=== PATIENT | male | born 1935 | race Caucasian/White ===

== ENCOUNTER 2018-03-11 10:31 | Inpatient (IN) | payer OTHER ==
--- NOTE | 2018-03-11 11:00 | PDOC ---
History of Present Illness - General History Source: Patient, Old Records Exam Limitations: No Limitations - History of Present Illness Initial Comments: 03/11/18 11:06 The patient is a 82 year old male, with a significant past medical history of hypertension, prostate cancer(s/p resection), and arthritis who presents to the emergency department sent by PCP Dr. Rangel Gilman, for evaluation of hyponatremia. Patient endorses several weeks of generalized fatigue, weakness, and lightheadedness. However, he denies any chest pain, shortness of breath, diaphoresis, or palpitations. She denies any abdominal pain, nausea, vomiting, diarrhea, or constipation. He denies any fever, chills, cough, headache, or dizziness. Patient reports he was being worked up by Dr. Gilman, where his last blood work was notable for a sodium of 124 4 days ago. He denies any recent travel or sick contacts. Allergies: Naproxen Past Surgical History: Prostate resection, hernia repair Social History: Former smoker. No ETOH or recreational drug use. PCP: Dr. Rangel Gilman <Darien Lee - Last Filed: 03/11/18 12:38> - General History Source: Patient, Old Records Exam Limitations: No Limitations <AnithaDuncan - Last Filed: 03/11/18 12:46> - General Chief Complaint: Revisit, Lab Variance Stated Complaint: SENT BY PCP LOW NA Time Seen by Provider: 03/11/18 10:42 Past History <Darien Lee - Last Filed: 03/11/18 12:38> - Past Medical History Anemia: No Asthma: No Cancer: Yes (PROSTATE) Cardiac Disorders: No CVA: No COPD: No CHF: No DVT: No Dementia: No Diabetes: No GI Disorders: No Disorders: No HTN: Yes Hypercholesterolemia: No Liver Disease: No Seizures: No Thyroid Disease: No Other medical history: ARITHRITIS - Surgical History Abdominal Surgery: Yes (HERNIA) Appendectomy: No Cardiac Surgery: No Cholecystectomy: No Lung Surgery: No Neurologic Surgery: No Orthopedic Surgery: No - Suicide/Smoking/Psychosocial Hx Smoking History: Former smoker Have you smoked in the past 12 months: No Number of Cigarettes Smoked Daily: 8 If you are a former smoker, when did you quit?: 1982 Information on smoking cessation initiated: No Hx Alcohol Use: Yes (DAILY) Drug/Substance Use Hx: No Substance Use Type: None Hx Substance Use Treatment: No <Duncan Welsh - Last Filed: 03/11/18 12:46> - Past Medical History Allergies/Adverse Reactions: Allergies Allergy/AdvReac Type Severity Reaction Status Date / Time naproxen [From Naprosyn] Allergy Mild CAUSED Verified 03/11/18 10:34 BLEEDING Home Medications: Ambulatory Orders Calcium Carb/Mag Ox/Zinc Sulf [Syajbum-Detcxoyee-Bpst Tablet] 1 each PO ASDIR Carvedilol [Coreg -] 12.5 mg PO BID 03/11/18 Diltiazem Cd [Cardizem Cd -] 240 mg PO DAILY 03/11/18 Furosemide [Lasix -] 20 mg PO ASDIR 03/11/18 Hydrochlorothiazide [Hctz -] 25 mg PO DAILY 03/11/18 Lisinopril [Prinivil] 5 mg PO DAILY 03/11/18 Multivit-Min/FA/Lycopen/Lutein [Centrum Silver Tablet] 1 each PO ASDIR 03/11/18 Om3/Dha/Epa/Cod Liver Oil/A/D3 [Cod Liver Oil Softgel] 1 each PO ASDIR 03/11/18 Saw [place] 260 mg PO ASDIR 03/11/18 Tamsulosin HCl [Flomax] 0.4 mg PO DAILY 03/11/18 Thiamine Mononitrate [Vitamin B-1] 100 mg PO ASDIR 03/11/18 Review of Systems - Review of Systems Able to Perform ROS?: Yes Comments:: 03/11/18 11:06 GENERAL/CONSTITUTIONAL: +Generalized fatigue, weakness. No fever or chills. HEAD, EYES, EARS, NOSE AND THROAT: No change in vision. No ear pain or discharge. No sore throat. CARDIOVASCULAR: No chest pain or shortness of breath. RESPIRATORY: No cough, wheezing, or hemoptysis. GASTROINTESTINAL: No nausea, vomiting, diarrhea or constipation. GENITOURINARY: No dysuria, frequency, or change in urination. MUSCULOSKELETAL: No joint or muscle swelling or pain. No neck or back pain. SKIN: No rash NEUROLOGIC: +Lightheadedness. No headache, vertigo, loss of consciousness, or change in strength/sensation. ENDOCRINE: No increased thirst. No abnormal weight change. HEMATOLOGIC/LYMPHATIC: No anemia, easy bleeding, or history of blood clots. ALLERGIC/IMMUNOLOGIC: No hives or skin allergy. <Darien Lee - Last Filed: 03/11/18 12:38> *Physical Exam - Vital Signs Last Vital Signs Temp Pulse Resp BP Pulse Ox 98.0 F 59 L 18 159/85 100 03/11/18 10:35 03/11/18 10:35 03/11/18 10:35 03/11/18 10:35 03/11/18 10:35 - Physical Exam Comments: 03/11/18 11:01 GENERAL: Awake, alert, and fully oriented, in no acute distress HEAD: No signs of trauma EYES: PERRLA, EOMI, sclera anicteric, conjunctiva clear LUNGS: Breath sounds equal, clear to auscultation bilaterally. No wheezes, and no crackles HEART: Regular rate and rhythm, normal S1 and S2, no murmurs, rubs or gallops ABDOMEN: Soft, nontender, normoactive bowel sounds. No guarding, no rebound. No masses EXTREMITIES: Normal range of motion, no edema. No clubbing or cyanosis. No cords, erythema, or tenderness NEUROLOGICAL: Cranial nerves II through XII grossly intact. 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 Gilman at 12:37. Case discussed at this time. <JesusLirach - Last Filed: 03/11/18 12:38> - Medical Decision Making 03/11/18 10:58 A portion of this note was documented by scribe services under my direction. I have reviewed the details of the note, within reason, and agree with the documentation with the following case summary and management plan written by me. Patient treated in the ED. Nursing notes are reviewed and incorporated into the medical decision-making. Vital signs reviewed. Peripheral IV access obtained by the nurse, laboratory studies are drawn and sent, reviewed and interpreted by myself. Vital Signs Temp Pulse Resp BP Pulse Ox 98.0 F 59 L 18 159/85 100 03/11/18 10:35 03/11/18 10:35 03/11/18 10:35 03/11/18 10:35 03/11/18 10:35 82-year-old male with past medical history of hypertension, prostate cancer status post resection sent in for evaluation for hyponatremia. The patient has been endorsing several weeks of generalized fatigue and lightheadedness and weakness. Never endorsed chest pain or shortness of breath. Denies recent illnesses, fevers, chills, cough, vomiting. The patient was being worked up as an outpatient by primary care physician, Dr. Rangel Gilman, and noted that the patient's sodium was 124 four days ago. The patient hyponatremia could potentially be explaining the patient's symptoms. We'll make sure to investigate other etiology such as metabolic disarray [place] acute renal insufficiency, cardiac, infectious. We'll obtain labs , urinalysis, EKG, chest x-ray and touch base with the patient's primary care physician for disposition. 03/11/18 12:45 CBC, BMP 03/11/18 11:14 03/11/18 11:14 CMP Sodium 128 mmol/L (136-145) L 03/11/18 11:14 Potassium 3.9 mmol/L (3.5-5.1) 03/11/18 11:14 Chloride 93 mmol/L (98-107) L 03/11/18 11:14 Carbon Dioxide 26 mmol/L (21-32) 03/11/18 11:14 Anion Gap 9 (8-16) 03/11/18 11:14 BUN 12 mg/dL (7-18) D 03/11/18 11:14 Creatinine 0.9 mg/dL (0.7-1.3) D 03/11/18 11:14 Creat Clearance w eGFR > 60 (>60) 03/11/18 11:14 Random Glucose 96 mg/dL (74-106) D 03/11/18 11:14 Calcium 8.9 mg/dL (8.5-10.1) 03/11/18 11:14 Phosphorus 2.7 mg/dL (2.5-4.9) 03/11/18 11:14 Magnesium 2.2 mg/dL (1.8-2.4) D 03/11/18 11:14 Total Bilirubin 0.5 mg/dL (0.2-1.0) 03/11/18 11:14 AST 20 U/L (15-37) 03/11/18 11:14 ALT 26 U/L (12-78) 03/11/18 11:14 Alkaline Phosphatase 53 U/L (45-117) 03/11/18 11:14 Creatine Kinase 141 IU/L (39-308) 03/11/18 11:14 Troponin I < 0.02 ng/ml (0.00-0.05) 03/11/18 11:14 Total Protein 8.1 g/dl (6.4-8.2) D 03/11/18 11:14 Albumin 3.8 g/dl (3.4-5.0) D 03/11/18 11:14 Pt with persistent weakness, lightheadedness, intermittent near syncope. Case discussed with Dr. Rangel Gilman. Accepts patient to his service under tele obs. Requests Dr. Huerta and Dr. Cespedes for consultation. Case discussed in detail with admitting physician including history, physical exam and ancillary studies. Admitting physician has assumed care for the patient, will follow all pending diagnostics and will complete the evaluation and treatment. <Duncan Welsh - Last Filed: 03/11/18 12:46> *DC/Admit/Observation/Transfer - Attestations Scribe Attestion: 03/11/18 11:01 Documentation prepared by Darien Lee, acting as territory sales manager medical for Duncan Welsh MD. <Darien Lee - Last Filed: 03/11/18 12:38> - Discharge Dispostion Decision to Admit order: Yes <Duncan Welsh - Last Filed: 03/11/18 12:46> Diagnosis at time of Disposition: Hyponatremia, Weakness - Discharge Dispostion Condition at time of disposition: Stable - Referrals Referrals: Rangel Gilman MD [Primary Care Provider] -
[2018-03-11 11:23] LABS: BASO % 0.6 % (0-2.0); EOS % 0.3 % (0-4.5); HEMATOCRIT 38.8 % (35.4-49); HEMOGLOBIN 13.2 GM/dL (11.7-16.9); MCHC 34.1 g/dl (32.0-35.9); MEAN CELL VOLUME 87.8 fl (80-96); MEAN PLT VOLUME 8.4 fl (7.5-11.1); MONO % 12.8 % (3.8-10.2); NEUT % 61.3 % (42.8-82.8); PLATELET COUNT 208 K/MM3 (134-434); RBC 4.42 M/mm3 (4.00-5.60); RDW 13.3 % (11.9-15.9); WHITE BLOOD COUNT 5.1 K/mm3 (4.0-10.0)
[2018-03-11 11:44] LABS: URINE APPEARANCE CLEAR; URINE BILIRUBIN NEGATIVE (<2.0 mg/dL); URINE BLOOD NEGATIVE (NEGATIVE); URINE COLOR STRAW; URINE GLUCOSE (UA) NEGATIVE (NEGATIVE); URINE KETONE NEGATIVE (NEGATIVE); URINE LEUK ESTERASE NEGATIVE (NEGATIVE); URINE NITRITE NEGATIVE (NEGATIVE); URINE PROTEIN NEGATIVE (NEGATIVE); URINE UROBILINOGEN NEGATIVE mg/dL (0.2-1.0)
[2018-03-11 12:06] LABS: ALBUMIN 3.8 g/dl (3.4-5.0); ANION GAP 9 (8-16); BILIRUBIN,TOTAL 0.5 mg/dL (0.2-1.0); BLOOD UREA NITROGEN 12 mg/dL (7-18); CALCIUM 8.9 mg/dL (8.5-10.1); CHLORIDE 93 mmol/L (98-107); CO2 26 mmol/L (21-32); CREATININE 0.9 mg/dL (0.7-1.3); GLUCOSE,RANDOM 96 mg/dL (74-106); MAGNESIUM 2.2 mg/dL (1.8-2.4); PHOSPHOROUS 2.7 mg/dL (2.5-4.9); POTASSIUM 3.9 mmol/L (3.5-5.1); SGOT/AST 20 U/L (15-37); SGPT/ALT 26 U/L (12-78); SODIUM 128 mmol/L (136-145); TOT PROT 8.1 g/dl (6.4-8.2)
[2018-03-11 12:09] LABS: ALK PHOS 53 U/L (45-117)
--- NOTE | 2018-03-11 13:20 | CON.CARD ---
Consult Consult Specialty:: Cardiology Referred by:: Dr. Gilman Reason for Consultation:: Lightheadedness - History of Present Illness Chief Complaint: weakness, lightheadedness History of Present Illness: 82 year old man h/o HTN, prostate ca, asbestosis, aortic stenosis, admitted with weakness, fatigue, ligtheadedness and hyponatremia, sent from Dr. Gilman office. Pt seen and examined in the ER in nad. states that he has been on diuretics including HCTZ then changed to lasix for chronic b/l LE edema. found to have hyponatremia as outpatient. Pt aware he has a murmur for years and as per review of records pt has aortic stenosis but degree is not reported. Denies any chest pain, sob, palpiations. No syncope. - History Source History Provided By: Patient, Medical Record Limitations to Obtaining History: No Limitations - Past Medical History Cardio/Vascular: Yes: Aortic Stenosis, HTN, Hyperlipdemia - Alcohol/Substance Use Hx Alcohol Use: Yes (DAILY) - Smoking History Smoking history: Former smoker Have you smoked in the past 12 months: No Aproximately how many cigarettes per day: 8 If you are a former smoker, when did you quit?: 1982 Home Medications - Allergies Allergies/Adverse Reactions: Allergies Allergy/AdvReac Type Severity Reaction Status Date / Time naproxen [From Naprosyn] Allergy Mild CAUSED Verified 03/11/18 10:34 BLEEDING - Home Medications Home Medications: Ambulatory Orders Calcium Carb/Mag Ox/Zinc Sulf [Gmpqedk-Oqjegwbmf-Mwbg Tablet] 1 each PO ASDIR Carvedilol [Coreg -] 12.5 mg PO BID 03/11/18 Diltiazem Cd [Cardizem Cd -] 240 mg PO DAILY 03/11/18 Furosemide [Lasix -] 20 mg PO ASDIR 03/11/18 Hydrochlorothiazide [Hctz -] 25 mg PO DAILY 03/11/18 Lisinopril [Prinivil] 5 mg PO DAILY 03/11/18 Multivit-Min/FA/Lycopen/Lutein [Centrum Silver Tablet] 1 each PO ASDIR 03/11/18 Om3/Dha/Epa/Cod Liver Oil/A/D3 [Cod Liver Oil Softgel] 1 each PO ASDIR 03/11/18 Saw [place] 260 mg PO ASDIR 03/11/18 Tamsulosin HCl [Flomax] 0.4 mg PO DAILY 03/11/18 Thiamine Mononitrate [Vitamin B-1] 100 mg PO ASDIR 03/11/18 Family Disease History - Family Disease History Family History: Denies Review of Systems - Review of Systems Constitutional: reports: Malaise, Weakness. denies: No Symptoms, Chills, Diaphoresis, Fever, Lethargy, Loss of Appetite, Night Sweats, Unintentional Wgt. Loss, Other Eyes: denies: No Symptoms, Blind Spots, Blurred Vision, Double Vision, Eye Pain , Floaters, Photophobia, Recent Change in Vision, Other HENT: denies: No Symptoms, Difficult Swallowing, Ear Discharge, Ear Pain, Epistaxis, Gingival Bleeding, Hearing Loss, Mouth Swelling, Nasal Congestion, Ocular Prosthesis, Throat Pain, Toothache, Ringing in Ears, Other Neck: denies: No Symptoms, Decreased ROM, Lumps, Pain on Movement, Stiffness, Swollen Glands, Tenderness, Other Cardiovascular: reports: Edema. denies: No Symptoms, Chest Pain, Palpitations, Shortness of Breath, Other Respiratory: denies: No Symptoms, Cough, Exercise Intolerance, Hemoptysis, Orthopnea, PND, Snoring, SOB, SOB on Exertion, Wheezing, Other Gastrointestinal: denies: No Symptoms, Abdominal Pain, Bloating, Constipation, Diarrhea, Dysphagia, Indigestion, Melena, Nausea, Rectal Bleeding, Vomiting, Vomiting Blood, Other Genitourinary: denies: No Symptoms, Burning, Discharge, Dysuria, Flank Pain, Frequency, Hematuria, Incontinence, Lesions, Menses, Pain, Testicular Mass, Testicular Pain, Testicular Swelling, Urgency, Vaginal Bleeding, Other Breasts: denies: No Symptoms Reported, See HPI, Breast Implants, Discharge from Nipple, Lumps, Pain, Skin Changes, Other Musculoskeletal: denies: No Symptoms, Back Pain, Crepitus, Decreased ROM, Extremity Pain, Joint Pain, Joint Swelling, Muscle Pain, Muscle Cramps, Muscle Weakness, Other Integumentary: denies: No Symptoms, Blister, Bruising, Change in Color, Eczema, Erythema, Incision, Lesions, Lump, Pallor, Pruritis, Rash, Wound, Other Neurological: reports: Dizziness. denies: No Symptoms, Change in LOC, Change in Speech, Confusion, Headache, Incoordination, Numbness, Parasthesia, Pre- Existing Deficit, Seizure, Syncope, Tremors, Unsteady Gait, Weakness, Other Endocrine: denies: No Symptoms, Excessive Sweating, Flushing, Increased Hunger, Increased Thirst, Intolerance to Cold, Intolerance to Heat, Unexplained Weight Gain, Unexplained Weight Loss, Other Hematology/Lymphatic: denies: No Symptoms, Easily Bruised, Excessive Bleeding, Swollen Glands, Other Psychiatric: denies: No Symptoms, Altered Sleep Pattern, Anxiety, Depression, Hallucinations, Panic, Paranoia, Suicidal, Other - Risk Factors Known Risk Factors: Yes: Hypertension Vital Signs: Vital Signs Temperature 98.0 F 03/11/18 10:35 Pulse Rate 59 L 03/11/18 10:35 Respiratory Rate 18 03/11/18 10:35 Blood Pressure 159/85 03/11/18 10:35 O2 Sat by Pulse Oximetry (%) 100 03/11/18 10:35 Constitutional: Yes: Well Nourished, No Distress, Calm Eyes: Yes: WNL, Conjunctiva Clear, EOM Intact HENT: Yes: WNL, Atraumatic, Normocephalic Neck: Yes: WNL, Supple, Trachea Midline Respiratory: Yes: Regular, Rhonchi. No: Rales, SOB, Wheezes Gastrointestinal: Yes: WNL, Normal Bowel Sounds, Soft. No: Distention, Tenderness Renal/: Yes: WNL Cardiovascular: Yes: Regular Rate and Rhythm. No: Bradycardia, Tachycardia, Pulse Irregular, Gallop, Rub, Varicosities JVD: No Carotid Bruit: No PMI: Non-Displaced Heart Sounds: Yes: S1, S2. No: Split S2, S3, S4, Clicks, Gallop, Rub, Bruit Murmur: Yes: Systolic Murmur, Grade 3 Extremities: Yes: WNL Edema: LLE: Trace, RLE: Trace Peripheral Pulses WNL: Yes Peripheral Pulses: 2+ Left Doralis Pedis, 2+ Right Dorsalis Pedis Neurological: Yes: Alert, Oriented Psychiatric: Yes: Alert, Oriented - Other Data Labs, Other Data: CBC, BMP 03/11/18 11:14 03/11/18 11:14 Troponin, BNP 03/11/18 11:14 Troponin I < 0.02 Troponin, BNP 03/11/18 11:14 Troponin I < 0.02 ekg-sb 56 rbbb, lafb Echo: Pending Imaging - Results Chest X-ray: Report Reviewed, Image Reviewed EKG: Report Reviewed, Image Reviewed Other: Report Reviewed, Image Reviewed Assessment/Plan 82 year old man h/o HTN, prostate ca, asbestosis, aortic stenosis, admitted with weakness, fatigue, ligtheadedness and hyponatremia, sent from Dr. Gilman office. Pt seen and examined in the ER in nad. states that he has been on diuretics including HCTZ then changed to lasix for chronic b/l LE edema. found to have hyponatremia as outpatient. Pt aware he has a murmur for years and as per review of records pt has aortic stenosis but degree is not reported. Denies any chest pain, sob, palpiations. No syncope. Weakness/lightheadedness -likely due to hyponatremia, possibly from diuretic use, unlikely arrhythmia -reduce diuretics -nephrology to evaluate -pt has significant murmur c/w Aortic stenosis, evaluate severity with echo -if is not severe then can be followed as outpatient Edema/rhonchi on exam -suspect rhonchi due to asbestosis, chronic lung disease reported on Cxr -pt states edema is currently improved -hold off on diuretics -f/up echo Remainder of cardiac work up can be completed as outpatient
--- NOTE | 2018-03-11 13:57 | HP ---
Admitting History and Physical - Admission Chief Complaint: feels weak dizzy 2 weeks blerry vision ? sob no cp. na level 124 w d/c hctz History Source: Patient Limitations to Obtaining History: No Limitations - Past Medical History Cardiovascular: Yes: Aortic Stenosis Pulmonary: Yes: Other (h/o of asbestosislarge heart) Musculoskeletal: Yes: Chronic low back pain (rt hernia) - Smoking History Smoking history: Former smoker Have you smoked in the past 12 months: No Aproximately how many cigarettes per day: 8 If you are a former smoker, when did you quit?: 1982 - Alcohol/Substance Use Hx Alcohol Use: Yes (DAILY) - Social History ADL: Independent History of Recent Travel: No Home Medications - Allergies Allergies/Adverse Reactions: Allergies Allergy/AdvReac Type Severity Reaction Status Date / Time naproxen [From Naprosyn] Allergy Mild CAUSED Verified 03/11/18 10:34 BLEEDING - Home Medications Home Medications: Ambulatory Orders Calcium Carb/Mag Ox/Zinc Sulf [Yzwwfbv-Ojpugraai-Jufp Tablet] 1 each PO ASDIR Carvedilol [Coreg -] 12.5 mg PO BID 03/11/18 Diltiazem Cd [Cardizem Cd -] 240 mg PO DAILY 03/11/18 Furosemide [Lasix -] 20 mg PO ASDIR 03/11/18 Hydrochlorothiazide [Hctz -] 25 mg PO DAILY 03/11/18 Lisinopril [Prinivil] 5 mg PO DAILY 03/11/18 Multivit-Min/FA/Lycopen/Lutein [Centrum Silver Tablet] 1 each PO ASDIR 03/11/18 Om3/Dha/Epa/Cod Liver Oil/A/D3 [Cod Liver Oil Softgel] 1 each PO ASDIR 03/11/18 Saw [place] 260 mg PO ASDIR 03/11/18 Tamsulosin HCl [Flomax] 0.4 mg PO DAILY 03/11/18 Thiamine Mononitrate [Vitamin B-1] 100 mg PO ASDIR 03/11/18 Family Disease History - Family Disease History Family History: Unremarkable Review of Systems - Review of Systems Constitutional: reports: Weakness Eyes: reports: No Symptoms HENT: reports: No Symptoms Neck: reports: No Symptoms Cardiovascular: reports: Shortness of Breath Respiratory: reports: SOB on Exertion Gastrointestinal: reports: No Symptoms Genitourinary: reports: No Symptoms Breasts: reports: No Symptoms Reported Musculoskeletal: reports: Back Pain Integumentary: reports: No Symptoms Neurological: reports: Dizziness Endocrine: reports: No Symptoms Hematology/Lymphatic: reports: No Symptoms Psychiatric: reports: No Symptoms Physical Examination Vital Signs: Vital Signs Temperature 98.0 F 03/11/18 10:35 Pulse Rate 59 L 03/11/18 10:35 Respiratory Rate 18 03/11/18 10:35 Blood Pressure 159/85 03/11/18 10:35 O2 Sat by Pulse Oximetry (%) 100 03/11/18 10:35 Constitutional: Yes: Well Nourished Eyes: Yes: WNL HENT: Yes: WNL Neck: Yes: WNL Cardiovascular: Yes: Regular Rate and Rhythm Respiratory: Yes: WNL, Other (murmer) Gastrointestinal: Yes: WNL ...Rectal Exam: Yes: Deferred Renal/: Yes: WNL Breast(s): Yes: WNL Musculoskeletal: Yes: WNL, Other (less edema) Extremities: Yes: WNL Edema: Yes Edema: LLE: 1+, RLE: 1+ Peripheral Pulses WNL: Yes Integumentary: Yes: WNL Neurological: Yes: WNL ...Motor Strength: WNL Psychiatric: Yes: WNL Labs: CBC, BMP 03/11/18 11:14 03/11/18 11:14 Problem List - Problems (2) CHF (congestive heart failure) Code(s): I50.9 - HEART FAILURE, UNSPECIFIED (3) Mitral valve annular calcification Code(s): I05.9 - RHEUMATIC MITRAL VALVE DISEASE, UNSPECIFIED (4) Cardiomegaly Code(s): I51.7 - CARDIOMEGALY (5) BPH (benign prostatic hyperplasia) Code(s): N40.0 - BENIGN PROSTATIC HYPERPLASIA WITHOUT LOWER URINRY TRACT SYMP (6) Accelerated essential hypertension Code(s): I10 - ESSENTIAL (PRIMARY) HYPERTENSION Assessment/Plan card appreteted kosta barrios admitt observation lasix 20 m [facility] w/u
[2018-03-11 15:04] VITALS: BMI 28.5
--- NOTE | 2018-03-11 15:42 | CONSULT ---
Consult Consult Specialty:: Nephrology Reason for Consultation:: hyponatremia - History of Present Illness Chief Complaint: sent in for a sodum of 124 History of Present Illness: Pt is an 82 year old male with pmhx of HTN, aortic stenosis, hyponatremia, asbestosis, prostate cancer and arthritis who was sent in to the hospital for hyponatremia. He is awake and alert. He denies shortness of breath. He denies lower ext edema at the moment but he does get it at times. He denies excess water consumption. He was on HCTZ daily which was stopped yesterday. He was started on lasix twice per week and took a dose today. He denies vomiting or diarrhea. He denies weight loss. He denies fevers or chills. - History Source History Provided By: Patient, Medical Record - Past Medical History Cardio/Vascular: Yes: Aortic Stenosis, HTN, Hyperlipdemia Pulmonary: Yes: Other (h/o of asbestosislarge heart) Renal/: Yes: Other (hyponatremia) Musculoskeletal: Yes: Chronic low back pain (rt hernia) - Alcohol/Substance Use Hx Alcohol Use: Yes (DAILY) - Smoking History Smoking history: Former smoker Have you smoked in the past 12 months: No Aproximately how many cigarettes per day: 8 If you are a former smoker, when did you quit?: 1982 - Social History ADL: Independent History of Recent Travel: No Home Medications - Allergies Allergies/Adverse Reactions: Allergies Allergy/AdvReac Type Severity Reaction Status Date / Time naproxen [From Naprosyn] Allergy Mild CAUSED Verified 03/11/18 10:34 BLEEDING - Home Medications Home Medications: Ambulatory Orders Calcium Carb/Mag Ox/Zinc Sulf [Zdxjzgx-Qqpwhltks-Utlo Tablet] 1 each PO ASDIR Carvedilol [Coreg -] 12.5 mg PO BID 03/11/18 Diltiazem Cd [Cardizem Cd -] 240 mg PO DAILY 03/11/18 Furosemide [Lasix -] 20 mg PO ASDIR 03/11/18 Hydrochlorothiazide [Hctz -] 25 mg PO DAILY 03/11/18 Lisinopril [Prinivil] 5 mg PO DAILY 03/11/18 Multivit-Min/FA/Lycopen/Lutein [Centrum Silver Tablet] 1 each PO ASDIR 03/11/18 Om3/Dha/Epa/Cod Liver Oil/A/D3 [Cod Liver Oil Softgel] 1 each PO ASDIR 03/11/18 Saw [place] 260 mg PO ASDIR 03/11/18 Tamsulosin HCl [Flomax] 0.4 mg PO DAILY 03/11/18 Thiamine Mononitrate [Vitamin B-1] 100 mg PO ASDIR 03/11/18 Family Disease History - Family Disease History Family History: Denies Review of Systems - Review of Systems Constitutional: reports: No Symptoms Eyes: reports: No Symptoms HENT: reports: No Symptoms Neck: reports: No Symptoms Cardiovascular: reports: No Symptoms Respiratory: reports: No Symptoms Gastrointestinal: reports: No Symptoms Genitourinary: reports: No Symptoms Musculoskeletal: reports: No Symptoms Integumentary: reports: No Symptoms Neurological: reports: No Symptoms Endocrine: reports: No Symptoms Hematology/Lymphatic: reports: No Symptoms Psychiatric: reports: No Symptoms Physical Exam Vital Signs: Vital Signs Temperature 98.1 F 03/11/18 15:02 Pulse Rate 72 03/11/18 15:02 Respiratory Rate 18 03/11/18 15:09 Blood Pressure 152/94 03/11/18 15:02 O2 Sat by Pulse Oximetry (%) 97 03/11/18 15:09 Constitutional: Yes: Calm Eyes: Yes: Conjunctiva Clear HENT: Yes: Atraumatic Cardiovascular: Yes: S1, S2 Respiratory: Yes: CTA Bilaterally Gastrointestinal: Yes: Normal Bowel Sounds, Soft Renal/: Yes: WNL Musculoskeletal: Yes: WNL Edema: LLE: Trace, RLE: Trace Integumentary: Yes: WNL Neurological: Yes: Oriented Psychiatric: Yes: Oriented Labs: CBC, BMP 03/11/18 11:14 03/11/18 11:14 Laboratory Tests 12/30/10 12/31/10 12/15/13 06:00 06:00 12:40 WBC Hgb Plt Count Sodium 128 L 132 L 126 L Potassium Creatinine Urine Protein Urine Blood Urine Osmolality Ur Random Sodium 12/16/13 12/18/13 12/19/13 11:30 06:00 05:45 WBC Hgb Plt Count Sodium 128 L 129 L 131 L Potassium Creatinine Urine Protein Urine Blood Urine Osmolality Ur Random Sodium 12/20/13 03/11/18 03/11/18 05:50 11:14 11:14 WBC 5.1 Hgb 13.2 Plt Count 208 D Sodium 131 L 128 L Potassium 3.9 Creatinine 0.9 D Urine Protein Urine Blood Urine Osmolality Ur Random Sodium 03/11/18 03/11/18 11:30 11:30 WBC Hgb Plt Count Sodium Potassium Creatinine Urine Protein Negative Urine Blood Negative Urine Osmolality Pending Ur Random Sodium Pending Imaging - Results Chest X-ray: Report Reviewed Problem List - Problems (1) Cardiomegaly Code(s): I51.7 - CARDIOMEGALY (2) Hyponatremia Code(s): E87.1 - HYPO-OSMOLALITY AND HYPONATREMIA Assessment/Plan Current Medications Generic Name Dose Route Start Last Admin Trade Name Freq PRN Reason Stop Dose Admin Carvedilol 12.5 mg 03/11/18 22:00 Coreg - PO BID CAROLEE Diltiazem HCl 240 mg 03/12/18 10:00 Cardizem Cd - PO DAILY CAROLEE Furosemide 20 mg 03/12/18 10:00 Lasix - PO DAILY CARO[facility] Tamsulosin HCl 0.4 mg 03/12/18 08:30 Flomax - PO DAILY@0830 [facility] Impression 1. hyponatremia 2. HTN 3. aortic stenosis 4. prostate cancer s/p resection 5. asbestosis 6. arthritis Plan - sodium in er is better that outpt - restrict free water - wound not restart hctz - stop furosemide - check echo to evaluate cardiac status - check urine sodium and urine osm - check plasma osm - check cortisol and tsh - will follow Dr Huerta
[2018-03-11] MEDS: CARVEDILOL 12.5 MG TABLET (FP) PO SCH (21:14)
[2018-03-12 07:17] LABS: HEMATOCRIT 34.8 % (35.4-49); MCH 30.3 pg (25.7-33.7); MCHC 34.6 g/dl (32.0-35.9); MEAN CELL VOLUME 87.5 fl (80-96); MEAN PLT VOLUME 8.9 fl (7.5-11.1); PLATELET COUNT 183 K/MM3 (134-434); RBC 3.98 M/mm3 (4.00-5.60); RDW 13.3 % (11.9-15.9); WHITE BLOOD COUNT 5.9 K/mm3 (4.0-10.0)
[2018-03-12 07:52] LABS: CHLORIDE 93 mmol/L (98-107); POTASSIUM 3.6 mmol/L (3.5-5.1); SODIUM 129 mmol/L (136-145)
[2018-03-12 08:15] LABS: ALBUMIN 3.2 g/dl (3.4-5.0); ALK PHOS 44 U/L (45-117); ANION GAP 8 (8-16); BILIRUBIN,TOTAL 0.5 mg/dL (0.2-1.0); BLOOD UREA NITROGEN 12 mg/dL (7-18); CALCIUM 8.2 mg/dL (8.5-10.1); CO2 28 mmol/L (21-32); CREATININE 0.8 mg/dL (0.7-1.3); GLUCOSE,RANDOM 78 mg/dL (74-106); SGOT/AST 17 U/L (15-37); SGPT/ALT 21 U/L (12-78); TOT PROT 6.7 g/dl (6.4-8.2)
[2018-03-12] MEDS: CARVEDILOL 12.5 MG TABLET (FP) PO SCH ×2 (09:38→21:02)
[2018-03-12] MEDS: TAMSULOSIN HCL 0.4 MG CAP.ER.24H (FP) PO SCH (09:38)
[2018-03-12] MEDS ORDERED: FUROSEMIDE 20 MG TABLET (FP) PO SCH (10:00)
--- NOTE | 2018-03-12 11:36 | PN ---
Progress Note (short form) - Note Progress Note: RENAL Pt is awake and alert comfortable no nausea or vomiting no diarrhea was on hctz and is stopped concerned that he is on a low salt diet Last Vital Signs Temp Pulse Resp BP Pulse Ox 97.8 F 68 20 149/92 97 03/12/18 05:50 03/12/18 05:50 03/12/18 05:50 03/12/18 05:50 03/12/18 09:00 lungs clear cvs s1s2 rr abd soft ext no edema neuro a+ox3 CBC, BMP 03/12/18 06:30 03/12/18 06:30 Current Medications Generic Name Dose Route Start Last Admin Trade Name Freq PRN Reason Stop Dose Admin Carvedilol 12.5 mg 03/11/18 22:00 03/12/18 09:38 Coreg - PO 12.5 mg BID CAROLEE Administration Diltiazem HCl 240 mg 03/12/18 10:00 03/12/18 09:38 Cardizem Cd - PO 240 mg DAILY [facility] Administration Tamsulosin HCl 0.4 mg 03/12/18 08:30 03/12/18 09:38 Flomax - PO 0.4 mg DAILY@0830 [facility] Administration Impression 1. hyponatremia likely due to diuretics 2. HTN 3. aortic stenosis 4. prostate cancer s/p resection 5. asbestosis 6. arthritis 7. has several valvular abnormalities Plan - would not restart hctz -if patient eats adequate amount of protein his sodium should improve despite low salt diet - can use patti inhibition if necessary - awiat work up MV
--- NOTE | 2018-03-12 11:58 | PN ---
Progress Note, Physician Chief Complaint: no comlaints tele neg History of Present Illness: 82 year old man h/o HTN, prostate ca, asbestosis, aortic stenosis, admitted with weakness, fatigue, ligtheadedness and hyponatremia, sent from Dr. Gilman office. Pt seen and examined in the ER in [facility]. states that he has been on diuretics including HCTZ then changed to lasix for chronic b/l LE edema. found to have hyponatremia as outpatient. Pt aware he has a murmur for years and as per review of records pt has aortic stenosis but degree is not reported. Denies any chest pain, sob, palpiations. No syncope. echo 03/11/18 normal EF moderate linus 1.0 42/22 mm gradient severe MAC mild mr/ tr - Current Medication List Current Medications: Active Medications Carvedilol (Coreg -) 12.5 mg PO BID [facility] Last Admin: 03/12/18 09:38 Dose: 12.5 mg Diltiazem HCl (Cardizem Cd -) 240 mg PO DAILY [facility] Last Admin: 03/12/18 09:38 Dose: 240 mg Tamsulosin HCl (Flomax -) 0.4 mg PO DAILY@0830 [facility] Last Admin: 03/12/18 09:38 Dose: 0.4 mg - Objective Vital Signs: Vital Signs Temperature 97.8 F 03/12/18 05:50 Pulse Rate 68 03/12/18 05:50 Respiratory Rate 20 03/12/18 05:50 Blood Pressure 149/92 03/12/18 05:50 O2 Sat by Pulse Oximetry (%) 97 03/12/18 09:00 Constitutional: Yes: No Distress Eyes: Yes: Conjunctiva Clear HENT: Yes: Normocephalic Neck: Yes: Trachea Midline Cardiovascular: Yes: Regular Rate and Rhythm, Murmur (2/6 lorne rusb.) Respiratory: Yes: CTA Bilaterally Gastrointestinal: Yes: Normal Bowel Sounds, Soft Edema: No Peripheral Pulses WNL: Yes Labs: CBC, BMP 03/12/18 06:30 03/12/18 06:30 Problem List - Problems (1) CHF (congestive heart failure) Assessment/Plan: Weakness/lightheadedness -likely due to hyponatremia, possibly from diuretic use, unlikely arrhythmia -reduce diuretics -nephrology to evaluate there is moderate . will follow with serial echoes for TAVR as an outpatient. Edema/rhonchi on exam -suspect rhonchi due to asbestosis, chronic lung disease reported on Cxr -pt states edema is currently improved -hold off on diuretics Remainder of cardiac work up can be completed as outpatient Code(s): I50.9 - HEART FAILURE, UNSPECIFIED Qualifiers: Heart failure type: diastolic
--- NOTE | 2018-03-12 12:27 | PN ---
Progress Note, Physician History of Present Illness: less weakness bm good vss tolerating diet no edema in legs? - Current Medication List Current Medications: Active Medications Carvedilol (Coreg -) 12.5 mg PO BID [facility] Last Admin: 03/12/18 09:38 Dose: 12.5 mg Diltiazem HCl (Cardizem Cd -) 240 mg PO DAILY [facility] Last Admin: 03/12/18 09:38 Dose: 240 mg Tamsulosin HCl (Flomax -) 0.4 mg PO DAILY@0830 [facility] Last Admin: 03/12/18 09:38 Dose: 0.4 mg - Objective Vital Signs: Vital Signs Temperature 97.8 F 03/12/18 05:50 Pulse Rate 68 03/12/18 05:50 Respiratory Rate 20 03/12/18 05:50 Blood Pressure 149/92 03/12/18 05:50 O2 Sat by Pulse Oximetry (%) 97 03/12/18 09:00 Constitutional: Yes: Well Nourished Eyes: Yes: WNL HENT: Yes: WNL Neck: Yes: WNL Cardiovascular: Yes: WNL, S4 Respiratory: Yes: WNL, SOB on Exertion Gastrointestinal: Yes: WNL ...Rectal Exam: Yes: Deferred Genitourinary: Yes: WNL Breast(s): Yes: WNL Musculoskeletal: Yes: WNL Extremities: Yes: WNL Edema: No Neurological: Yes: WNL ...Motor Strength: WNL Psychiatric: Yes: WNL Labs: CBC, BMP 03/12/18 06:30 03/12/18 06:30 Problem List - Problems (2) CHF (congestive heart failure) Code(s): I50.9 - HEART FAILURE, UNSPECIFIED Qualifiers: Heart failure type: diastolic (3) Mitral valve annular calcification Code(s): I05.9 - RHEUMATIC MITRAL VALVE DISEASE, UNSPECIFIED (4) Cardiomegaly Code(s): I51.7 - CARDIOMEGALY (5) BPH (benign prostatic hyperplasia) Code(s): N40.0 - BENIGN PROSTATIC HYPERPLASIA WITHOUT LOWER URINRY TRACT SYMP (6) Accelerated essential hypertension Code(s): I10 - ESSENTIAL (PRIMARY) HYPERTENSION Assessment/Plan cont tx as is cjk na in am ? p/t eval in am ? d/c wednesday
[2018-03-13 01:18] LABS: URINE CREATININE 20.5 mg/dL (20-370)
[2018-03-13 07:47] LABS: ANION GAP 8 (8-16); BLOOD UREA NITROGEN 14 mg/dL (7-18); CALCIUM 8.5 mg/dL (8.5-10.1); CHLORIDE 94 mmol/L (98-107); CO2 27 mmol/L (21-32); CREATININE 0.8 mg/dL (0.7-1.3); GLUCOSE,RANDOM 83 mg/dL (74-106); POTASSIUM 3.8 mmol/L (3.5-5.1); SODIUM 129 mmol/L (136-145)
[2018-03-13] MEDS: CARVEDILOL 12.5 MG TABLET (FP) PO SCH ×2 (09:09→21:19)
[2018-03-13] MEDS: TAMSULOSIN HCL 0.4 MG CAP.ER.24H (FP) PO SCH (09:09)
--- NOTE | 2018-03-13 12:01 | PN ---
Progress Note (short form) - Note Progress Note: RENAL Pt is awake and alert comfortable no nausea or vomiting no diarrhea was on hctz and is stopped Last Vital Signs Temp Pulse Resp BP Pulse Ox 98 F 66 18 154/102 97 03/13/18 09:00 03/13/18 09:00 03/13/18 09:00 03/13/18 09:00 03/12/18 20:01 neck supple lungs clear cvs s1s2 rr abd soft ext no edema neuro a+ox3 CBC, BMP 03/12/18 06:30 03/13/18 06:30 Current Medications Generic Name Dose Route Start Last Admin Trade Name Brijeshq PRN Reason Stop Dose Admin Carvedilol 12.5 mg 03/11/18 22:00 03/13/18 09:09 Coreg - PO 12.5 mg BID CAROLEE Administration Diltiazem HCl 240 mg 03/12/18 10:00 03/13/18 09:09 Cardizem Cd - PO 240 mg DAILY [facility] Administration Tamsulosin HCl 0.4 mg 03/12/18 08:30 03/13/18 09:09 Flomax - PO 0.4 mg DAILY@0830 [facility] Administration tsh and cortisol are normal Impression 1. hyponatremia likely due to diuretics- hypoosmolar 2. HTN 3. aortic stenosis 4. prostate cancer s/p resection 5. asbestosis 6. arthritis 7. has several valvular abnormalities Plan - would not restart hctz -if patient eats adequate amount of protein his sodium should improve despite low salt diet - can use patti inhibition if necessary - start losartan for BP, note HR of 66 and he is on 2 meds that slow av conduction MV
[2018-03-13] MEDS ORDERED: LOSARTAN POTASSIUM 25 MG TABLET PO ONE (12:45)
--- NOTE | 2018-03-13 22:30 | EKG ---
Test Reason : Blood Pressure : / mmHG Vent. Rate : 057 BPM Atrial Rate : 057 BPM P-R Int : 250 ms QRS Dur : 144 ms QT Int : 454 ms P-R-T Axes : 017 -45 -11 degrees QTc Int : 441 ms SINUS BRADYCARDIA WITH 1ST DEGREE A-V BLOCK RIGHT BUNDLE BRANCH BLOCK LEFT ANTERIOR FASCICULAR BLOCK BIFASCICULAR BLOCK MINIMAL VOLTAGE CRITERIA FOR LVH, MAY BE NORMAL VARIANT ABNORMAL ECG WHEN COMPARED WITH ECG OF 16-DEC-2013 09:42, [place] INTERVAL HAS INCREASED Confirmed by SHELIA FERNÁNDEZ MD ([id number]) on 03/13/2018 10:29:29 PM Referred By: Confirmed By:SHELIA FERNÁNDEZ MD
[2018-03-14 06:21] LABS: BASO % 0.6 % (0-2.0); EOS % 1.5 % (0-4.5); HEMATOCRIT 35.1 % (35.4-49); HEMOGLOBIN 12.3 GM/dL (11.7-16.9); LYMPH % 33.8 % (8-40); MCH 30.5 pg (25.7-33.7); MCHC 34.9 g/dl (32.0-35.9); MEAN CELL VOLUME 87.4 fl (80-96); MEAN PLT VOLUME 8.7 fl (7.5-11.1); NEUT % 53.1 % (42.8-82.8); PLATELET COUNT 175 K/MM3 (134-434); RBC 4.02 M/mm3 (4.00-5.60); WHITE BLOOD COUNT 6.8 K/mm3 (4.0-10.0)
[2018-03-14 06:52] LABS: ANION GAP 10 (8-16); BLOOD UREA NITROGEN 14 mg/dL (7-18); CALCIUM 8.5 mg/dL (8.5-10.1); CHLORIDE 97 mmol/L (98-107); CO2 26 mmol/L (21-32); GLUCOSE,RANDOM 86 mg/dL (74-106); POTASSIUM 3.8 mmol/L (3.5-5.1); SODIUM 133 mmol/L (136-145)
[2018-03-14 06:55] LABS: CREATININE 0.7 mg/dL (0.7-1.3)
[2018-03-14] MEDS: TAMSULOSIN HCL 0.4 MG CAP.ER.24H (FP) PO SCH (09:06)
--- NOTE | 2018-03-14 09:46 | PN ---
Progress Note, Physician History of Present Illness: less weakness good bm,s vss tolerating diet - Current Medication List Current Medications: Active Medications Diltiazem HCl (Cardizem Cd -) 240 mg PO DAILY [facility] Last Admin: 03/14/18 09:06 Dose: 240 mg Metoprolol Succinate (Toprol Xl -) 25 mg PO DAILY [facility] Tamsulosin HCl (Flomax -) 0.4 mg PO DAILY@0830 [facility] Last Admin: 03/14/18 09:06 Dose: 0.4 mg - Objective Vital Signs: Vital Signs Temperature 98 F 03/14/18 09:00 Pulse Rate 60 03/14/18 09:00 Respiratory Rate 18 03/14/18 09:00 Blood Pressure 184/94 03/14/18 09:00 O2 Sat by Pulse Oximetry (%) 97 03/13/18 20:48 Constitutional: Yes: Well Nourished Eyes: Yes: WNL HENT: Yes: WNL Neck: Yes: WNL Cardiovascular: Yes: WNL Respiratory: Yes: SOB on Exertion Gastrointestinal: Yes: WNL ...Rectal Exam: Yes: Deferred Genitourinary: Yes: WNL Breast(s): Yes: WNL Musculoskeletal: Yes: WNL Extremities: Yes: WNL Edema: No Peripheral Pulses WNL: Yes Integumentary: Yes: WNL Neurological: Yes: WNL ...Motor Strength: WNL Psychiatric: Yes: WNL Labs: CBC, BMP 03/14/18 06:00 03/14/18 06:00 Problem List - Problems (2) CHF (congestive heart failure) Code(s): I50.9 - HEART FAILURE, UNSPECIFIED Qualifiers: Heart failure type: diastolic (3) Mitral valve annular calcification Code(s): I05.9 - RHEUMATIC MITRAL VALVE DISEASE, UNSPECIFIED (4) Cardiomegaly Code(s): I51.7 - CARDIOMEGALY (5) BPH (benign prostatic hyperplasia) Code(s): N40.0 - BENIGN PROSTATIC HYPERPLASIA WITHOUT LOWER URINRY TRACT SYMP (6) Accelerated essential hypertension Code(s): I10 - ESSENTIAL (PRIMARY) HYPERTENSION Assessment/Plan change to metoprolol 25 pt w diastolic failuer not systolic cont tx as is at home no dieretics!! will watch for impending edemw ? chf ? d/c today
[2018-03-14] MEDS ORDERED: metoPROLOL SUCCINATE 25 MG TAB.SR.24H (FP) PO SCH (10:00)
[2018-03-14 13:55] VITALS: BP 150/76; PULSE 62; TEMP 98.8
--- NOTE | 2018-03-14 14:17 | PN ---
Progress Note, Physician History of Present Illness: Pt seen and examined at bedside. He is awake and alert. He denies shortness of breath. He denies lower ext edema. He has been off of diuretics over the weekend. - Current Medication List Current Medications: Active Medications Metoprolol Succinate (Toprol Xl -) 25 mg PO DAILY [facility] Last Admin: 03/14/18 09:53 Dose: 25 mg Tamsulosin HCl (Flomax -) 0.4 mg PO DAILY@0830 [facility] Last Admin: 03/14/18 09:06 Dose: 0.4 mg - Objective Vital Signs: Vital Signs Temperature 98.8 F 03/14/18 13:54 Pulse Rate 62 03/14/18 13:54 Respiratory Rate 18 03/14/18 13:54 Blood Pressure 150/76 03/14/18 13:54 O2 Sat by Pulse Oximetry (%) 98 03/14/18 09:00 Constitutional: Yes: Calm Eyes: Yes: Conjunctiva Clear HENT: Yes: Atraumatic Neck: Yes: Supple Cardiovascular: Yes: S1, S2 Respiratory: Yes: CTA Bilaterally Gastrointestinal: Yes: Soft Genitourinary: Yes: WNL Musculoskeletal: Yes: WNL Extremities: Yes: WNL Edema: No Neurological: Yes: Oriented Psychiatric: Yes: Oriented Labs: CBC, BMP 03/14/18 06:00 03/14/18 06:00 Problem List - Problems (1) Cardiomegaly Code(s): I51.7 - CARDIOMEGALY (2) Hyponatremia Code(s): E87.1 - HYPO-OSMOLALITY AND HYPONATREMIA Assessment/Plan Current Medications Generic Name Dose Route Start Last Admin Trade Name Abdoul PRN Reason Stop Dose Admin Metoprolol Succinate 25 mg 03/14/18 10:00 03/14/18 09:53 Toprol Xl - PO 25 mg DAILY [facility] Administration Tamsulosin HCl 0.4 mg 03/12/18 08:30 03/14/18 09:06 Flomax - PO 0.4 mg DAILY@0830 [facility] Administration Laboratory Tests 03/11/18 03/12/18 03/12/18 11:30 06:30 06:30 Sodium TSH 2.30 Cortisol AM Sample 14.3 Urine Osmolality 234 L Ur Random Sodium 59 03/14/18 06:00 Sodium 133 L TSH Cortisol AM Sample Urine Osmolality Ur Random Sodium Laboratory Tests 03/12/18 06:30 Serum Osmolality 262 L Impression 1. hyponatremia 2. HTN 3. aortic stenosis 4. prostate cancer s/p resection 5. asbestosis 6. arthritis Plan - sodium is improving - keep off of diuretics for now and monitor volume status closely, would not restart hctz, can use lasix of needed - will need to monitor sodium and volume status closely - urine osm is lower than plasma osm - unlikely siadh - cardio follow up - discussed low salt diet and fluid intake at length with pt - will follow Dr Huerta
--- NOTE | 2018-03-14 14:20 | DS ---
Physical Examination Vital Signs: Vital Signs Temperature 98.8 F 03/14/18 13:54 Pulse Rate 62 03/14/18 13:54 Respiratory Rate 18 03/14/18 13:54 Blood Pressure 150/76 03/14/18 13:54 O2 Sat by Pulse Oximetry (%) 98 03/14/18 09:00 Constitutional: Yes: Well Nourished Eyes: Yes: WNL HENT: Yes: WNL Neck: Yes: WNL Cardiovascular: Yes: WNL Respiratory: Yes: WNL Gastrointestinal: Yes: WNL ...Rectal Exam: Yes: Deferred Renal/: Yes: WNL Breast(s): Yes: WNL Musculoskeletal: Yes: WNL Extremities: Yes: WNL Edema: No Peripheral Pulses WNL: Yes Integumentary: Yes: WNL Neurological: Yes: WNL ...Motor Strength: WNL Psychiatric: Yes: WNL Labs: CBC, BMP 03/14/18 06:00 03/14/18 06:00 Discharge Summary Reason For Visit: HYPONATREMIA,WEAKNESS Current Active Problems Accelerated essential hypertension (Acute) BPH (benign prostatic hyperplasia) (Acute) CHF (congestive heart failure) (Acute) Cardiomegaly (Acute) Hyponatremia (Acute) Mitral valve annular calcification (Acute) SIAD (syndrome of inappropriate antidiuresis) (Acute) Weakness (Acute) Condition: Good - Instructions Diet, Activity, Other Instructions: appt w mw 1200 noon stop ditiazam and diretics stop coreg take [id number] mg qd metoprolol 25mg qd cont all meds at home as is flomax ect Referrals: Rangel Gilman MD [Primary Care Provider] - Disposition: HOME - Home Medications Comprehensive Discharge Medication List: Ambulatory Orders Calcium Carb/Mag Ox/Zinc Sulf [Quvxlxe-Ausoonrxb-Hufc Tablet] 1 each PO ASDIR Carvedilol [Coreg -] 12.5 mg PO BID 03/11/18 Diltiazem Cd [Cardizem Cd -] 240 mg PO DAILY 03/11/18 Furosemide [Lasix -] 20 mg PO ASDIR 03/11/18 Hydrochlorothiazide [Hctz -] 25 mg PO DAILY 03/11/18 Lisinopril [Prinivil] 5 mg PO DAILY 03/11/18 Multivit-Min/FA/Lycopen/Lutein [Centrum Silver Tablet] 1 each PO ASDIR 03/11/18 Om3/Dha/Epa/Cod Liver Oil/A/D3 [Cod Liver Oil Softgel] 1 each PO ASDIR 03/11/18 Saw [place] 260 mg PO ASDIR 03/11/18 Tamsulosin HCl [Flomax] 0.4 mg PO DAILY 03/11/18 Thiamine Mononitrate [Vitamin B-1] 100 mg PO ASDIR 03/11/18
[2018-03-15] MEDS ORDERED: LOSARTAN POTASSIUM 50 MG TABLET (FP) PO SCH (10:00)
== END 2018-03-14 15:18 | disposition home or self-care (01) | DRG 641 ==
LOC: JER 10:31 → JERBED 12:46 → J4W 14:49
PROVIDERS: ADMIT Family Medicine; ATTEND Family Medicine
DX: E87.1 Hypo-osmolality and hyponatremia (principal); I50.30 Unspecified diastolic (congestive) heart failure; I45.2 Bifascicular block; N40.0 Benign prostatic hyperplasia without lower urinary tract symptoms; R53.1 Weakness; I51.7 Cardiomegaly; I11.0 Hypertensive heart disease with heart failure; J61 Pneumoconiosis due to asbestos and other mineral fibers; I35.0 Nonrheumatic aortic (valve) stenosis
CPT/HCPCS: 36415; 71045-TC-FY; 80048; 80053; 81003; 82533; 82550; 82570; 83735; 83930; 83935; 84100; 84300; 84443; 84484; 85025; 85027; 87086; 93005; 93010; 93306-TC; 99282-25

== ENCOUNTER 2020-04-16 15:48 | Emergency (ER) | payer OTHER ==
[2020-04-16 15:54] VITALS: TEMP 98.4; BMI 26.6
--- NOTE | 2020-04-16 16:28 | PDOC ---
History of Present Illness - General Chief Complaint: Pain, Acute Stated Complaint: LEFT LEG REDNESS/PAIN Time Seen by Provider: 04/16/20 16:28 - History of Present Illness Initial Comments: 04/16/20 17:24 Pt presents to the ED complaining of LLE swelling that started 4 days ago. Also complaining of pain that was worst 4 days ago and has gradaully improved. Denies fever, nausea or vomiting. Denies worsening of his chronic shortness of breath. States that he has had swelling in that leg in the past, which went away when he was given a "water pill". 04/16/20 17:54 Is this a multiple visit Asthma Patient?: No Past History - Medical History Allergies/Adverse Reactions: Allergies Allergy/AdvReac Type Severity Reaction Status Date / Time naproxen [From Naprosyn] Allergy Mild CAUSED Verified 04/16/20 15:49 BLEEDING Home Medications: Ambulatory Orders Multivit-Min/FA/Lycopen/Lutein [Centrum Silver Tablet] 1 each PO ASDIR 03/11/18 Om3/Dha/Epa/Cod Liver Oil/A/D3 [Cod Liver Oil Softgel] 1 each PO ASDIR 03/11/18 Saw [place] 260 mg PO ASDIR 03/11/18 Tamsulosin HCl [Flomax] 0.4 mg PO DAILY 03/11/18 Losartan Potassium 50 mg PO DAILY #30 tablet 03/14/18 Metoprolol Succinate 25 mg PO DAILY #30 tab.er.24h 03/14/18 Cephalexin [Keflex] 500 mg PO BID #20 capsule 04/16/20 Anemia: No Asthma: No Cancer: Yes (PROSTATE) Cardiac Disorders: No CVA: No COPD: No CHF: No DVT: No Dementia: No Diabetes: No GI Disorders: No Disorders: No HTN: Yes Hypercholesterolemia: No Liver Disease: No Seizures: No Thyroid Disease: No - Surgical History Abdominal Surgery: Yes (HERNIA) Appendectomy: No Cardiac Surgery: No Cholecystectomy: No Lung Surgery: No Neurologic Surgery: No Orthopedic Surgery: No - Psycho-Social/Smoking History Smoking History: Former smoker Have you smoked in the past 12 months: No Number of Cigarettes Smoked Daily: 8 If you are a former smoker, when did you quit?: 1982 Information on smoking cessation initiated: No - Substance Abuse Hx (Audit-C & DAST Scrn) How often the patient has a drink containing alcohol: 4 0r more times/wk Number of drinks the patient has on a typical day: 1 or 2 How often the patient has six or more drinks on one occasion: Never Score: In Men: 4 or > Positive; In Women: 3 or > Positive: 4 Screen Result (Pos requires Nsg. Audit-10AR): Positive In the last yr the pt used illegal drug/Rx for NonMed reason: No Score: Yes response is considered Positive: 0 Screen Result (Positive result requires Nsg. DAST-10): Negative Review of Systems - Review of Systems Able to Perform ROS?: Yes Is the patient limited Haitian proficient: No Constitutional: No: Symptoms Reported, See HPI, Chills, Diaphoresis, Fever, Loss of Appetite, Malaise, Night Sweats, Weakness, Weight Stable, Unintentional Wgt. Loss, Unexplained wgt Loss, Other HEENTM: No: Symptoms Reported, See HPI, Eye Pain, Blurred Vision, Tearing, Recent change in vision, Double Vision, Cataracts, Ear Pain, Ocular Prothesis, Ear Discharge, Nose Pain, Nose Congestion, Tinnitus, Nose Bleeding, Hearing Loss, Throat Pain, Throat Swelling, Mouth Pain, Dental Problems, Difficulty Swallowing, Mouth Swelling, Other Respiratory: No: Symptoms reported, See HPI, Cough, Orthopnea, Shortness of Breath, SOB with Exertion, SOB at Rest, Stridor, Wheezing, Productive cough, Hemoptysis, Other Cardiac (ROS): Yes: Edema. No: Symptoms Reported, See HPI, Chest Pain, Irregular Heart Rate, Lightheadedness, Palpitations, Syncope, Chest Tightness, Other ABD/GI: No: Symptoms Reported, See HPI, Abdominal Distended, Abd. Pain w/ defecation, Blood Streaked Bowels, Constipated, Diarrhea, Difficulty Swallowing, Nausea, Poor Appetite, Poor Fluid Intake, Rectal Bleeding, Vomiting, Indigestion, Abdominal cramping, Tarry Stools, Other : No: Symptoms Reported, See HPI, Burning, Dysuria, Discharge, Frequency, Flank Pain, Hematuria, Incontinence, Pain, Urgency, Testicular Mass, Testicular Swelling, Lesions, Testicular Pain, Other Musculoskeletal: No: Symptoms Reported, See HPI, Back Pain, Gout, Joint Pain, Joint Swelling, Muscle Pain, Muscle Weakness, Neck Pain, Joint Stiffness, Other Integumentary: Yes: Erythema *Physical Exam - Vital Signs Last Vital Signs Temp Pulse Resp BP Pulse Ox 98.4 F 66 19 181/100 H 98 04/16/20 15:49 04/16/20 15:49 04/16/20 15:49 04/16/20 15:49 04/16/20 15:49 - Physical Exam 04/16/20 17:56 GEn: alert, NAD CV: rrr no m/r/g Pulm: CTA b/l Abdomen: soft, non tender, non distended, no guarding or rebound ext: + non pitting edema to the LLE. + mild calf tenderness. + erythema from the ankle to the mid calf on the LLE. ED Treatment Course - LABORATORY CBC & Chemistry Diagram: 04/16/20 16:56 04/16/20 16:55 Medical Decision Making - Medical Decision Making 04/16/20 17:58 Pt presents to the ED complaining of LLE pain and swelling. Duplex negative for DVT. LAbs are unremarkable. Exam is consistent with cellulitis. Will discharge home with rx for outpatient antibiotics and instructions to return to the Ed for worsening symptoms and to follow up with his PCP. Discharge - Discharge Information Problems reviewed: Yes Clinical Impression/Diagnosis: Cellulitis Qualifiers: Site of cellulitis: extremity Site of cellulitis of extremity: lower extremity Laterality: left Qualified Code(s): L03.116 - Cellulitis of left lower limb Condition: Good Disposition: HOME - Admission No - Additional Discharge Information Prescriptions: Cephalexin [Keflex] 500 mg PO BID #20 capsule - Follow up/Referral - Patient Discharge Instructions Patient Printed Discharge Instructions: DI for Cellulitis -- Adult Additional Instructions: you came to the Ed for swelling of the leg. We did an ultrasound to evaluate for a blood clot, which is negative. The redness and swelling is most likely caused by a skin infection. We gave you a prescription for an antibiotic that you should take until it is all gone. return immedately to the ED for worsening pain and swelling, redness that spreads up your leg to the rest of your body, fever, nausea and vomiting, other new or worsening symptoms. Call your doctor for a follow up appointment this week - Post Discharge Activity
[2020-04-16 16:56] VITALS: PULSE 70
[2020-04-16 17:03] LABS: BASO % 0.5 % (0-2.0); EOS % 0.6 % (0-4.5); HEMATOCRIT 38.7 % (35.4-49); HEMOGLOBIN 13.1 GM/dl (11.7-16.9); LYMPH % 28.6 % (8-40); MCH 28.9 pg (25.7-33.7); MEAN CELL VOLUME 85.2 fl (80-96); MEAN PLT VOLUME 9.3 fl (7.5-11.1); MONO % 9.4 % (3.8-10.2); NEUT % 60.9 % (42.8-82.8); PLATELET COUNT 193 K/MM3 (134-434); RBC 4.54 M/mm3 (4.00-5.60); RDW 13.4 % (11.9-15.9); WHITE BLOOD COUNT 5.7 K/mm3 (4.0-10.8)
[2020-04-16 17:17] LABS: ACTIVATED PTT 26.7 SECONDS (25.2-36.5); ALBUMIN 3.7 g/dl (3.4-5.0); BILIRUBIN,TOTAL 0.3 mg/dl (0.2-1); CALCIUM 9.4 mg/dl (8.5-10); CREATININE 0.8 mg/dl (0.55-1.3); POTASSIUM 4.4 mmol/L (3.5-5.1); TOT PROT 7.3 g/dl (6.4-8.2)
[2020-04-16 17:21] LABS: INR 1.16 (0.82-1.09); PROTHROMBIN TIME (PATIENT) 12.9 SEC (10.2-13.0)
[2020-04-16] MEDS ORDERED: CEPHALEXIN MONOHYDRATE 500 MG CAPSULE (UD) PO ONE (17:46)
[2020-04-16 17:50] VITALS: BP 189/90
[2020-04-16] MEDS ORDERED: CEPHALEXIN MONOHYDRATE 500 MG CAPSULE (UD) ONE (17:50)
== END 2020-04-16 18:10 | disposition home or self-care (01) ==
LOC: FER 15:48
DX: L03.116 Cellulitis of left lower limb (principal)
CPT/HCPCS: 36415; 80053; 85025; 85610; 85730; 93971-TC; 99284-25

== ENCOUNTER 2021-05-13 17:07 | Inpatient (IN) | payer OTHER ==
[2021-05-13 20:26] LABS: BASO % 0.5 % (0-2.0); EOS % 0.8 % (0-4.5); HEMATOCRIT 35.4 % (35.4-49); HEMOGLOBIN 12.1 GM/dL (11.7-16.9); LYMPH % 29.9 % (8-40); MCH 30.1 pg (25.7-33.7); MCHC 34.1 g/dl (32.0-35.9); MEAN CELL VOLUME 88.1 fl (80-96); MEAN PLT VOLUME 9.5 fl (7.5-11.1); MONO % 9.4 % (3.8-10.2); NEUT % 59.4 % (42.8-82.8); PLATELET COUNT 143 10^3/uL (134-434); RBC 4.02 M/mm3 (4.00-5.60); RDW 13.4 % (11.9-15.9); WHITE BLOOD COUNT 6.9 K/mm3 (4.0-10.0)
[2021-05-13 20:33] LABS: INR 1.11 (0.83-1.09); PROTHROMBIN TIME (PATIENT) 13.6 SEC (9.7-13.0)
[2021-05-13 20:36] LABS: ACTIVATED PTT 28.5 SECONDS (25.2-36.5)
[2021-05-13 20:44] LABS: CALCIUM 8.6 mg/dL (8.5-10.1)
[2021-05-13 20:45] LABS: ALBUMIN 3.2 g/dl (3.4-5.0); BLOOD UREA NITROGEN 20.4 mg/dL (7-18)
[2021-05-13 20:48] LABS: CREATININE 1.1 mg/dL (0.55-1.3)
[2021-05-13 20:49] LABS: BILIRUBIN,TOTAL 0.7 mg/dL (0.2-1)
[2021-05-13 20:50] LABS: TOT PROT 6.7 g/dl (6.4-8.2)
[2021-05-13 20:53] LABS: N-TERMINAL BNP 7329.4 pg/ml (5-450)
[2021-05-13 23:27] LABS: BASO % 0.6 % (0-2.0); EOS % 0.7 % (0-4.5); HEMATOCRIT 35.2 % (35.4-49); HEMOGLOBIN 12.2 GM/dL (11.7-16.9); LYMPH % 29.3 % (8-40); MCH 30.5 pg (25.7-33.7); MCHC 34.6 g/dl (32.0-35.9); MEAN PLT VOLUME 9.2 fl (7.5-11.1); MONO % 10.9 % (3.8-10.2); NEUT % 58.5 % (42.8-82.8); PLATELET COUNT 139 10^3/uL (134-434); RBC 3.99 M/mm3 (4.00-5.60); RDW 13.2 % (11.9-15.9)
[2021-05-14 00:13] LABS: EPI CELLS 1 /uL (0-25.1); HYALINE CASTS 0 /uL (0-3.1); PH,URINE 7.5 (5.0-8.0); URINE APPEARANCE CLEAR; URINE BACTERIA 20 /uL (0-1359); URINE BILIRUBIN NEGATIVE (NEGATIVE); URINE COLOR ORANGE; URINE GLUCOSE (UA) NEGATIVE (NEGATIVE); URINE KETONE NEGATIVE (NEGATIVE); URINE LEUK ESTERASE NEGATIVE (NEGATIVE); URINE NITRITE NEGATIVE (NEGATIVE); URINE PROTEIN NEGATIVE (NEGATIVE); URINE UROBILINOGEN 0.2 mg/dL (0.2-1.0); URINE WBC 6 /uL (0-25.8)
[2021-05-14 04:02] LABS: YEAST NONE SEEN (NEGATIVE)
[2021-05-14] MEDS ORDERED: morphine CARPU-JECT 2 MG/1 ML DISP.SYRIN SQ ONE (04:45)
[2021-05-14] MEDS ORDERED: MORPHINE SULFATE 2 MG/ML VIAL ONE (04:48)
[2021-05-14 05:55] LABS: HEMATOCRIT 42.3 % (35.4-49); HEMOGLOBIN 14.7 GM/dL (11.7-16.9); MCHC 34.8 g/dl (32.0-35.9); MEAN PLT VOLUME 9.9 fl (7.5-11.1); PLATELET COUNT 163 10^3/uL (134-434); RBC 4.75 M/mm3 (4.00-5.60); RDW 13.3 % (11.9-15.9); WHITE BLOOD COUNT 8.1 K/mm3 (4.0-10.0)
[2021-05-14 06:25] LABS: CALCIUM 9.2 mg/dL (8.5-10.1)
[2021-05-14 06:26] LABS: ALBUMIN 3.6 g/dl (3.4-5.0); BLOOD UREA NITROGEN 20.8 mg/dL (7-18)
[2021-05-14 06:29] LABS: CREATININE 1.4 mg/dL (0.55-1.3)
[2021-05-14 06:30] LABS: BILIRUBIN,TOTAL 0.5 mg/dL (0.2-1)
[2021-05-14 06:31] LABS: TOT PROT 7.8 g/dl (6.4-8.2)
[2021-05-14] MEDS ORDERED: CARVEDILOL 12.5 MG TABLET (FP) ONE (07:57)
[2021-05-14] MEDS ORDERED: TAMSULOSIN HCL 0.4 MG CAP PO SCH (08:30)
[2021-05-14] MEDS: CARVEDILOL 25 MG TABLET (FP) PO SCH ×2 (09:00→23:00)
[2021-05-14] MEDS: PANTOPRAZOLE SODIUM 40 MG VIAL IVPUSH SCH (09:00)
[2021-05-14] MEDS ORDERED: HEPARIN NA (PORCINE) 5,000 UNITS/ML 1ML VIAL SQ SCH (14:00)
[2021-05-14] MEDS ORDERED: CEFTRIAXONE 1 GM in DEXTROSE 5%-WATER - 50 ML IVPB ONE ×2 (14:59→15:18)
[2021-05-14] MEDS ORDERED: DEXTROSE 5%-WATER - 50 ML IVPB ONE (15:34)
[2021-05-14] MEDS ORDERED: cefTRIAXone SODIUM 1 GM VIAL ONE (15:34)
[2021-05-14 16:42] VITALS: BMI 26.4
[2021-05-14] MEDS: TAMSULOSIN HCL 0.4 MG CAP PO SCH (23:00)
[2021-05-15 07:58] LABS: BASO % 0.2 % (0-2.0); EOS % 1.2 % (0-4.5); HEMOGLOBIN 12.9 GM/dL (11.7-16.9); LYMPH % 26.4 % (8-40); MCH 30.5 pg (25.7-33.7); MCHC 34.8 g/dl (32.0-35.9); MEAN CELL VOLUME 87.7 fl (80-96); MONO % 10.5 % (3.8-10.2); NEUT % 61.7 % (42.8-82.8); PLATELET COUNT 130 10^3/uL (134-434); RBC 4.21 M/mm3 (4.00-5.60); RDW 13.9 % (11.9-15.9); WHITE BLOOD COUNT 8.5 K/mm3 (4.0-10.0)
[2021-05-15 08:22] LABS: CALCIUM 8.4 mg/dL (8.5-10.1)
[2021-05-15 08:23] LABS: BLOOD UREA NITROGEN 21.2 mg/dL (7-18)
[2021-05-15 08:26] LABS: CREATININE 1.1 mg/dL (0.55-1.3)
[2021-05-15 08:27] LABS: BILIRUBIN,TOTAL 0.6 mg/dL (0.2-1); TOT PROT 6.5 g/dl (6.4-8.2)
[2021-05-15] MEDS ORDERED: POTASSIUM CHLORIDE TABS 10 MEQ TABLET.ER (FP) PO ONE (09:15)
[2021-05-15] MEDS ORDERED: ACETAMINOPHEN 325 MG TABLET (FP) ONE (09:44)
[2021-05-15] MEDS: PANTOPRAZOLE SODIUM 40 MG VIAL IVPUSH SCH (09:50)
[2021-05-15] MEDS: CARVEDILOL 25 MG TABLET (FP) PO SCH ×2 (09:50→21:34)
[2021-05-15] MEDS: FINASTERIDE 5 MG TABLET (FP) PO SCH (09:51)
[2021-05-15] MEDS: TAMSULOSIN HCL 0.4 MG CAP PO SCH ×2 (09:51→21:34)
[2021-05-15] MEDS: amLODIPine BESYLATE 5 MG TABLET (FP) PO SCH (09:51)
[2021-05-15] MEDS ORDERED: ACETAMINOPHEN 325 MG TABLET (FP) PO PRN (10:58)
[2021-05-16 08:10] LABS: BASO % 0.4 % (0-2.0); EOS % 3.2 % (0-4.5); HEMATOCRIT 35.4 % (35.4-49); HEMOGLOBIN 12.4 GM/dL (11.7-16.9); LYMPH % 24.9 % (8-40); MCH 30.8 pg (25.7-33.7); MEAN PLT VOLUME 10.4 fl (7.5-11.1); MONO % 11.3 % (3.8-10.2); NEUT % 60.2 % (42.8-82.8); PLATELET COUNT 130 10^3/uL (134-434); RBC 4.03 M/mm3 (4.00-5.60); RDW 13.2 % (11.9-15.9); WHITE BLOOD COUNT 8.3 K/mm3 (4.0-10.0)
[2021-05-16 08:23] LABS: CALCIUM 7.9 mg/dL (8.5-10.1)
[2021-05-16 08:24] LABS: ALBUMIN 2.8 g/dl (3.4-5.0); BLOOD UREA NITROGEN 18.8 mg/dL (7-18)
[2021-05-16 08:29] LABS: BILIRUBIN,TOTAL 0.7 mg/dL (0.2-1); TOT PROT 6.2 g/dl (6.4-8.2)
[2021-05-16] MEDS: FINASTERIDE 5 MG TABLET (FP) PO SCH (10:41)
[2021-05-16] MEDS: TAMSULOSIN HCL 0.4 MG CAP PO SCH ×2 (10:41→21:30)
[2021-05-16] MEDS: CARVEDILOL 25 MG TABLET (FP) PO SCH ×2 (10:41→21:30)
[2021-05-16] MEDS: amLODIPine BESYLATE 5 MG TABLET (FP) PO SCH (10:41)
[2021-05-16] MEDS: PANTOPRAZOLE SODIUM 40 MG VIAL IVPUSH SCH (10:41)
[2021-05-17 07:55] LABS: BASO % 0.3 % (0-2.0); EOS % 4.7 % (0-4.5); HEMATOCRIT 35.4 % (35.4-49); HEMOGLOBIN 12.3 GM/dL (11.7-16.9); LYMPH % 29.5 % (8-40); MCH 30.3 pg (25.7-33.7); MCHC 34.7 g/dl (32.0-35.9); MEAN CELL VOLUME 87.2 fl (80-96); MEAN PLT VOLUME 9.6 fl (7.5-11.1); MONO % 12.8 % (3.8-10.2); NEUT % 52.7 % (42.8-82.8); PLATELET COUNT 124 10^3/uL (134-434); RBC 4.06 M/mm3 (4.00-5.60); RDW 13.2 % (11.9-15.9)
[2021-05-17 08:16] LABS: CALCIUM 8.2 mg/dL (8.5-10.1)
[2021-05-17 08:17] LABS: ALBUMIN 2.8 g/dl (3.4-5.0); BLOOD UREA NITROGEN 18.3 mg/dL (7-18)
[2021-05-17 08:21] LABS: TOT PROT 6.4 g/dl (6.4-8.2)
[2021-05-17 08:22] LABS: BILIRUBIN,TOTAL 1.2 mg/dL (0.2-1)
[2021-05-17] MEDS: TAMSULOSIN HCL 0.4 MG CAP PO SCH ×2 (08:28→22:15)
[2021-05-17] MEDS: PANTOPRAZOLE SODIUM 40 MG VIAL IVPUSH SCH (09:11)
[2021-05-17] MEDS: CARVEDILOL 25 MG TABLET (FP) PO SCH ×2 (09:12→22:15)
[2021-05-17] MEDS: amLODIPine BESYLATE 10 MG TABLET (FP) PO SCH (09:12)
[2021-05-17] MEDS: FINASTERIDE 5 MG TABLET (FP) PO SCH (09:12)
[2021-05-18] MEDS: TAMSULOSIN HCL 0.4 MG CAP PO SCH ×2 (09:25→21:54)
[2021-05-18] MEDS: PANTOPRAZOLE SODIUM 40 MG VIAL IVPUSH SCH (09:38)
[2021-05-18] MEDS: amLODIPine BESYLATE 10 MG TABLET (FP) PO SCH (09:38)
[2021-05-18] MEDS: CARVEDILOL 25 MG TABLET (FP) PO SCH ×2 (09:38→21:54)
[2021-05-18] MEDS: FINASTERIDE 5 MG TABLET (FP) PO SCH (09:38)
[2021-05-18] MEDS: hydrALAZINE HCL 25 MG TABLET (FP) PO SCH (21:54)
[2021-05-19] MEDS: hydrALAZINE HCL 25 MG TABLET (FP) PO SCH ×2 (11:41→21:34)
[2021-05-19] MEDS: CARVEDILOL 25 MG TABLET (FP) PO SCH ×2 (11:42→21:34)
[2021-05-19] MEDS: amLODIPine BESYLATE 10 MG TABLET (FP) PO SCH (11:42)
[2021-05-19] MEDS: TAMSULOSIN HCL 0.4 MG CAP PO SCH ×2 (11:42→21:35)
[2021-05-19] MEDS: FINASTERIDE 5 MG TABLET (FP) PO SCH (11:43)
[2021-05-19] MEDS: PANTOPRAZOLE SODIUM 40 MG VIAL IVPUSH SCH (11:43)
[2021-05-19] MEDS ORDERED: MIDAZOLAM HCL 2 MG/2 ML SINGLE DOSE VIAL ONE (14:13)
[2021-05-19] MEDS ORDERED: PROPOFOL 20 ML ONE (14:13)
[2021-05-19] MEDS ORDERED: LIDOCAINE HCL/PF 2% SDV 5ML VIAL ONE (14:14)
[2021-05-19] MEDS ORDERED: BUPIVACAINE HCL/PF 0.5% (5MG/ML) 10 ML VIAL ONE (14:18)
[2021-05-19] MEDS ORDERED: ceFAZolin SODIUM 1 GM VIAL IVPB ONE (15:24)
[2021-05-19] MEDS ORDERED: HYDROmorphone HCl 2 MG/ML VIAL IM ONE (16:38)
[2021-05-19] MEDS ORDERED: ACETAMINOPHEN 325 MG TABLET (FP) PO PRN (16:45)
[2021-05-19] MEDS ORDERED: ONDANSETRON 4 MG/2 ML VIAL IVPUSH PRN (16:47)
[2021-05-19] MEDS ORDERED: LACTATED RINGERS SOLUTION 1,000 ML IV SCH (17:00)
[2021-05-19] MEDS: oxyCODONE HCL 5 MG TABLET PO PRN (21:35)
[2021-05-20] MEDS: oxyCODONE HCL 5 MG TABLET PO PRN ×2 (03:59→15:19)
[2021-05-20 07:42] LABS: HEMATOCRIT 33.8 % (35.4-49); HEMOGLOBIN 11.8 GM/dL (11.7-16.9); MCH 30.6 pg (25.7-33.7); MCHC 34.9 g/dl (32.0-35.9); MEAN CELL VOLUME 87.9 fl (80-96); MEAN PLT VOLUME 9.9 fl (7.5-11.1); PLATELET COUNT 139 10^3/uL (134-434); RBC 3.84 M/mm3 (4.00-5.60); RDW 13.3 % (11.9-15.9); WHITE BLOOD COUNT 8.9 K/mm3 (4.0-10.0)
[2021-05-20 08:04] LABS: BLOOD UREA NITROGEN 16.7 mg/dL (7-18); CALCIUM 8.1 mg/dL (8.5-10.1)
[2021-05-20 08:05] LABS: MAGNESIUM 1.7 mg/dL (1.8-2.4)
[2021-05-20 08:08] LABS: CREATININE 0.7 mg/dL (0.55-1.3); PHOSPHOROUS 3.6 mg/dL (2.5-4.9)
[2021-05-20] MEDS: TAMSULOSIN HCL 0.4 MG CAP PO SCH ×2 (08:48→21:21)
[2021-05-20] MEDS ORDERED: MAGNESIUM 2GM/50ML STERILE WATER IVPB IVPB ONE (09:00)
[2021-05-20] MEDS: FINASTERIDE 5 MG TABLET (FP) PO SCH (10:14)
[2021-05-20] MEDS: amLODIPine BESYLATE 10 MG TABLET (FP) PO SCH (10:15)
[2021-05-20] MEDS: CARVEDILOL 25 MG TABLET (FP) PO SCH ×2 (10:15→21:21)
[2021-05-20] MEDS: hydrALAZINE HCL 25 MG TABLET (FP) PO SCH ×2 (10:15→21:21)
[2021-05-20] MEDS: PANTOPRAZOLE SODIUM 40 MG VIAL IVPUSH SCH (10:15)
[2021-05-20] MEDS: ACETAMINOPHEN 325 MG TABLET (FP) PO PRN ×2 (15:21→21:23)
[2021-05-21] MEDS: ACETAMINOPHEN 325 MG TABLET (FP) PO PRN (09:26)
[2021-05-21] MEDS: TAMSULOSIN HCL 0.4 MG CAP PO SCH ×2 (09:26→21:24)
[2021-05-21] MEDS: CARVEDILOL 25 MG TABLET (FP) PO SCH ×2 (09:27→21:24)
[2021-05-21] MEDS: hydrALAZINE HCL 25 MG TABLET (FP) PO SCH ×2 (09:27→21:23)
[2021-05-21] MEDS: amLODIPine BESYLATE 10 MG TABLET (FP) PO SCH (09:27)
[2021-05-21] MEDS: FINASTERIDE 5 MG TABLET (FP) PO SCH (09:27)
[2021-05-21] MEDS: PANTOPRAZOLE SODIUM 40 MG VIAL IVPUSH SCH (09:28)
[2021-05-21] MEDS: POLYETHYLENE GLYCOL (HEALTHYLAX) 3350 17 GM PACKET PO SCH (11:05)
[2021-05-22] MEDS: TAMSULOSIN HCL 0.4 MG CAP PO SCH ×2 (10:24→21:19)
[2021-05-22] MEDS: amLODIPine BESYLATE 10 MG TABLET (FP) PO SCH (10:25)
[2021-05-22] MEDS: CARVEDILOL 25 MG TABLET (FP) PO SCH ×2 (10:25→21:19)
[2021-05-22] MEDS: hydrALAZINE HCL 25 MG TABLET (FP) PO SCH ×2 (10:25→21:19)
[2021-05-22] MEDS: PANTOPRAZOLE SODIUM 40 MG VIAL IVPUSH SCH (10:25)
[2021-05-22] MEDS: FINASTERIDE 5 MG TABLET (FP) PO SCH (10:25)
[2021-05-22] MEDS: POLYETHYLENE GLYCOL (HEALTHYLAX) 3350 17 GM PACKET PO SCH (10:31)
[2021-05-22 11:06] LABS: HEMATOCRIT 32.9 % (35.4-49); HEMOGLOBIN 11.2 GM/dL (11.7-16.9); MCH 30.1 pg (25.7-33.7); MCHC 34.1 g/dl (32.0-35.9); MEAN CELL VOLUME 88.3 fl (80-96); MEAN PLT VOLUME 9.1 fl (7.5-11.1); PLATELET COUNT 153 10^3/uL (134-434); RBC 3.73 M/mm3 (4.00-5.60); WHITE BLOOD COUNT 6.8 K/mm3 (4.0-10.0)
[2021-05-22] MEDS: ACETAMINOPHEN 325 MG TABLET (FP) PO PRN (21:41)
[2021-05-23] MEDS: PANTOPRAZOLE SODIUM 40 MG VIAL IVPUSH SCH (10:34)
[2021-05-23] MEDS: hydrALAZINE HCL 25 MG TABLET (FP) PO SCH ×2 (10:34→21:47)
[2021-05-23] MEDS: CARVEDILOL 25 MG TABLET (FP) PO SCH ×2 (10:34→21:46)
[2021-05-23] MEDS: TAMSULOSIN HCL 0.4 MG CAP PO SCH ×2 (10:34→21:45)
[2021-05-23] MEDS: FINASTERIDE 5 MG TABLET (FP) PO SCH (10:34)
[2021-05-23] MEDS: amLODIPine BESYLATE 10 MG TABLET (FP) PO SCH (10:34)
[2021-05-23] MEDS: POLYETHYLENE GLYCOL (HEALTHYLAX) 3350 17 GM PACKET PO SCH (17:36)
[2021-05-23] MEDS: ACETAMINOPHEN 325 MG TABLET (FP) PO PRN (21:47)
[2021-05-24] MEDS: hydrALAZINE HCL 25 MG TABLET (FP) PO SCH ×2 (10:16→21:57)
[2021-05-24] MEDS: amLODIPine BESYLATE 10 MG TABLET (FP) PO SCH (10:16)
[2021-05-24] MEDS: PANTOPRAZOLE SODIUM 40 MG VIAL IVPUSH SCH (10:17)
[2021-05-24] MEDS: CARVEDILOL 25 MG TABLET (FP) PO SCH ×2 (10:17→21:57)
[2021-05-24] MEDS: TAMSULOSIN HCL 0.4 MG CAP PO SCH ×2 (10:17→21:57)
[2021-05-24] MEDS: FINASTERIDE 5 MG TABLET (FP) PO SCH (10:17)
[2021-05-24] MEDS: POLYETHYLENE GLYCOL (HEALTHYLAX) 3350 17 GM PACKET PO SCH (11:07)
[2021-05-24 13:19] LABS: BASO % 0.5 % (0-2.0); EOS % 0.8 % (0-4.5); HEMATOCRIT 34.9 % (35.4-49); LYMPH % 20.4 % (8-40); MCH 30.4 pg (25.7-33.7); MCHC 34.4 g/dl (32.0-35.9); MEAN CELL VOLUME 88.5 fl (80-96); MEAN PLT VOLUME 8.9 fl (7.5-11.1); MONO % 10.5 % (3.8-10.2); NEUT % 67.8 % (42.8-82.8); PLATELET COUNT 223 10^3/uL (134-434); RBC 3.95 M/mm3 (4.00-5.60); RDW 13.2 % (11.9-15.9); WHITE BLOOD COUNT 7.8 K/mm3 (4.0-10.0)
[2021-05-24 13:45] LABS: BLOOD UREA NITROGEN 15.8 mg/dL (7-18); CALCIUM 8.7 mg/dL (8.5-10.1)
[2021-05-24 13:48] LABS: CREATININE 0.9 mg/dL (0.55-1.3)
[2021-05-25] MEDS: amLODIPine BESYLATE 10 MG TABLET (FP) PO SCH (09:49)
[2021-05-25] MEDS: CARVEDILOL 25 MG TABLET (FP) PO SCH ×2 (09:49→21:52)
[2021-05-25] MEDS: hydrALAZINE HCL 25 MG TABLET (FP) PO SCH ×2 (09:49→21:52)
[2021-05-25] MEDS: TAMSULOSIN HCL 0.4 MG CAP PO SCH ×2 (09:50→21:52)
[2021-05-25] MEDS: ACETAMINOPHEN 325 MG TABLET (FP) PO PRN (09:50)
[2021-05-25] MEDS: FINASTERIDE 5 MG TABLET (FP) PO SCH (09:50)
[2021-05-25] MEDS: PANTOPRAZOLE SODIUM 40 MG VIAL IVPUSH SCH (09:51)
[2021-05-25] MEDS: POLYETHYLENE GLYCOL (HEALTHYLAX) 3350 17 GM PACKET PO SCH (09:51)
[2021-05-25 17:33] LABS: BLOOD UREA NITROGEN 21.6 mg/dL (7-18); CALCIUM 8.2 mg/dL (8.5-10.1)
[2021-05-26 07:34] LABS: BASO % 0.7 % (0-2.0); EOS % 3.3 % (0-4.5); HEMATOCRIT 30.1 % (35.4-49); HEMOGLOBIN 10.7 GM/dL (11.7-16.9); LYMPH % 26.5 % (8-40); MCH 30.7 pg (25.7-33.7); MCHC 35.4 g/dl (32.0-35.9); MEAN CELL VOLUME 86.7 fl (80-96); MEAN PLT VOLUME 8.7 fl (7.5-11.1); NEUT % 56.5 % (42.8-82.8); PLATELET COUNT 194 10^3/uL (134-434); RBC 3.47 M/mm3 (4.00-5.60); WHITE BLOOD COUNT 7.1 K/mm3 (4.0-10.0)
[2021-05-26 07:58] LABS: CALCIUM 8.5 mg/dL (8.5-10.1)
[2021-05-26 07:59] LABS: BLOOD UREA NITROGEN 17.9 mg/dL (7-18)
[2021-05-26 08:02] LABS: CREATININE 0.8 mg/dL (0.55-1.3)
[2021-05-26] MEDS: TAMSULOSIN HCL 0.4 MG CAP PO SCH ×2 (09:15→21:34)
[2021-05-26] MEDS: FINASTERIDE 5 MG TABLET (FP) PO SCH (09:15)
[2021-05-26] MEDS: CARVEDILOL 25 MG TABLET (FP) PO SCH ×2 (09:15→21:34)
[2021-05-26] MEDS: POLYETHYLENE GLYCOL (HEALTHYLAX) 3350 17 GM PACKET PO SCH (09:15)
[2021-05-26] MEDS: hydrALAZINE HCL 25 MG TABLET (FP) PO SCH ×2 (09:15→21:34)
[2021-05-26] MEDS: PANTOPRAZOLE SODIUM 40 MG VIAL IVPUSH SCH (09:15)
[2021-05-26] MEDS: amLODIPine BESYLATE 10 MG TABLET (FP) PO SCH (09:15)
[2021-05-27] MEDS: PANTOPRAZOLE SODIUM 40 MG VIAL IVPUSH SCH (11:18)
[2021-05-27] MEDS: amLODIPine BESYLATE 10 MG TABLET (FP) PO SCH (11:19)
[2021-05-27] MEDS: TAMSULOSIN HCL 0.4 MG CAP PO SCH (11:19)
[2021-05-27] MEDS: hydrALAZINE HCL 25 MG TABLET (FP) PO SCH (11:19)
[2021-05-27] MEDS: FINASTERIDE 5 MG TABLET (FP) PO SCH (11:19)
[2021-05-27] MEDS: CARVEDILOL 25 MG TABLET (FP) PO SCH (11:19)
[2021-05-27] MEDS: POLYETHYLENE GLYCOL (HEALTHYLAX) 3350 17 GM PACKET PO SCH (11:21)
[2021-05-27 14:11] VITALS: BP 132/68; PULSE 66; TEMP 98.2
== END 2021-05-27 14:00 | disposition home or self-care (01) | DRG 713 ==
LOC: JER 17:07 → JERBED 21:46 → J4W 05-14 12:13 → UNDODISIN 05-22 20:54
PROVIDERS: ADMIT Family Medicine
PROC: 0VT08ZZ Resection of Prostate, Via Natural or Artificial Opening Endoscopic (ICD-10-PCS; principal; 2021-05-18)
PROC: 0V508ZZ Destruction of Prostate, Via Natural or Artificial Opening Endoscopic (ICD-10-PCS; 2021-05-18)
PROC: 0TJB8ZZ Inspection of Bladder, Via Natural or Artificial Opening Endoscopic (ICD-10-PCS; 2021-05-18)
DX: C61 Malignant neoplasm of prostate (principal); I50.32 Chronic diastolic (congestive) heart failure; N13.30 Unspecified hydronephrosis; N17.9 Acute kidney failure, unspecified; R00.0 Tachycardia, unspecified; I11.0 Hypertensive heart disease with heart failure; N40.1 Benign prostatic hyperplasia with lower urinary tract symptoms; J61 Pneumoconiosis due to asbestos and other mineral fibers; N32.0 Bladder-neck obstruction; N40.0 Benign prostatic hyperplasia without lower urinary tract symptoms; M54.5 Low back pain; E78.5 Hyperlipidemia, unspecified; I45.10 Unspecified right bundle-branch block; K21.9 Gastro-esophageal reflux disease without esophagitis; I08.3 Combined rheumatic disorders of mitral, aortic and tricuspid valves; R33.9 Retention of urine, unspecified
CPT/HCPCS: 36415; 71045-TC-FY; 71275-TC; 74177-TC; 76775-TC; 80048; 80053; 81003; 82550; 82962; 83735; 83880; 84100; 84153; 84154; 84443; 84484; 85025; 85027; 85379; 85610; 85730; 86850; 86900; 86901; 87086; 88307-TC; 93005; 93010; 93306-TC; 93970-TC; 94010; 94760; 97116-GP; 97161-GP; 99285-25; C9803; U0003; U0005

== ENCOUNTER 2021-06-13 03:40 | Observation (INO) | payer OTHER ==
[2021-06-13] MEDS ORDERED: LIDOCAINE HCL 2% JELLY 10 ML CARTRIDGE ONE (04:52)
[2021-06-13 05:46] LABS: BASO % 0.2 % (0-2.0); EOS % 0.2 % (0-4.5); HEMATOCRIT 35.1 % (35.4-49); HEMOGLOBIN 12.4 GM/dL (11.7-16.9); LYMPH % 5.6 % (8-40); MCH 30.4 pg (25.7-33.7); MCHC 35.3 g/dl (32.0-35.9); MEAN CELL VOLUME 86.1 fl (80-96); MONO % 9.7 % (3.8-10.2); NEUT % 84.3 % (42.8-82.8); PLATELET COUNT 228 10^3/uL (134-434); RBC 4.08 M/mm3 (4.00-5.60); RDW 12.9 % (11.9-15.9); WHITE BLOOD COUNT 8.7 K/mm3 (4.0-10.0)
[2021-06-13 05:51] LABS: INR 1.08 (0.83-1.09); PROTHROMBIN TIME (PATIENT) 13.3 SEC (9.7-13.0)
[2021-06-13 05:54] LABS: ACTIVATED PTT 26.9 SECONDS (25.2-36.5)
[2021-06-13 05:56] LABS: PH,URINE 6.5 (5.0-8.0); URINE APPEARANCE BLOODY; URINE BILIRUBIN SMALL (NEGATIVE); URINE COLOR RED; URINE GLUCOSE (UA) NEGATIVE (NEGATIVE); URINE KETONE NEGATIVE (NEGATIVE); URINE PROTEIN 300 (NEGATIVE)
[2021-06-13 05:57] LABS: URINE LEUK ESTERASE 3+ (NEGATIVE); URINE NITRITE POSITIVE (NEGATIVE); URINE UROBILINOGEN 0.2 mg/dL (0.2-1.0)
[2021-06-13 06:03] LABS: CHLORIDE 94 mmol/L (98-107); SODIUM 127 mmol/L (136-145)
[2021-06-13 06:05] LABS: CALCIUM 8.8 mg/dL (8.5-10.1)
[2021-06-13 06:06] LABS: ALBUMIN 3.1 g/dl (3.4-5.0); ANION GAP 10 MMOL/L (8-16); BLOOD UREA NITROGEN 17.2 mg/dL (7-18); CO2 22 mmol/L (21-32); GLUCOSE,RANDOM 121 mg/dL (74-106)
[2021-06-13 06:09] LABS: CREATININE 0.8 mg/dL (0.55-1.3); SGOT/AST 14 U/L (15-37); SGPT/ALT 22 U/L (13-61)
[2021-06-13 06:10] LABS: BILIRUBIN,TOTAL 0.8 mg/dL (0.2-1); TOT PROT 6.9 g/dl (6.4-8.2)
[2021-06-13 06:12] LABS: ALK PHOS 60 U/L (45-117)
[2021-06-13] MEDS ORDERED: cefTRIAXone SODIUM 1 GM VIAL ONE (07:55)
[2021-06-13 08:56] LABS: EPI CELLS 51.7 /uL (0-25.1); HYALINE CASTS 434.7 /uL (0-3.1); URINE BACTERIA 38.2 /uL (0-1359); URINE RBC 19997 /uL (0-23.9); URINE WBC 6778 /uL (0-25.8)
[2021-06-13 08:57] LABS: YEAST NON SEEN (NEGATIVE)
[2021-06-13] MEDS ORDERED: SODIUM CHLORIDE 0.9% 500 ML INFUS.BAG IV ONE (14:31)
[2021-06-13] MEDS ORDERED: TAMSULOSIN HCL 0.4 MG CAP PO ONE (16:20)
[2021-06-13] MEDS ORDERED: TAMSULOSIN HCL 0.4 MG CAP ONE (16:59)
[2021-06-13] MEDS ORDERED: BETHANECHOL CHLORIDE 10 MG TABLET PO SCH (18:00)
[2021-06-13] MEDS: BETHANECHOL CHLORIDE 25 MG TABLET PO SCH ×2 (19:06→22:34)
[2021-06-13] MEDS: CARVEDILOL 25 MG TABLET (FP) PO SCH (22:34)
[2021-06-13 23:24] VITALS: BMI 25.2
[2021-06-14 08:15] LABS: BASO % 0.4 % (0-2.0); EOS % 2.5 % (0-4.5); HEMATOCRIT 28.1 % (35.4-49); HEMOGLOBIN 10.2 GM/dL (11.7-16.9); MCH 31.1 pg (25.7-33.7); MCHC 36.2 g/dl (32.0-35.9); MEAN CELL VOLUME 85.9 fl (80-96); MEAN PLT VOLUME 8.4 fl (7.5-11.1); MONO % 11.8 % (3.8-10.2); NEUT % 66.3 % (42.8-82.8); PLATELET COUNT 195 10^3/uL (134-434); RBC 3.27 M/mm3 (4.00-5.60); RDW 12.9 % (11.9-15.9)
[2021-06-14 08:36] LABS: BLOOD UREA NITROGEN 14.6 mg/dL (7-18)
[2021-06-14 08:38] LABS: CALCIUM 8.2 mg/dL (8.5-10.1)
[2021-06-14 08:40] LABS: CREATININE 0.7 mg/dL (0.55-1.3)
[2021-06-14 08:41] LABS: BILIRUBIN,TOTAL 0.3 mg/dL (0.2-1); TOT PROT 5.6 g/dl (6.4-8.2)
[2021-06-14 08:47] LABS: ALBUMIN 2.3 g/dl (3.4-5.0)
[2021-06-14] MEDS ORDERED: MORPHINE SULFATE 2 MG/ML VIAL IVPUSH PRN (09:44)
[2021-06-14] MEDS ORDERED: MORPHINE SULFATE 2 MG/ML VIAL ONE (09:56)
[2021-06-14] MEDS ORDERED: CEFTRIAXONE 2 GM-D5W BAG 2 GM/50 ML BAG IVPB SCH (10:00)
[2021-06-14] MEDS: PANTOPRAZOLE 40 MG TABLET PO SCH (11:12)
[2021-06-14] MEDS: CARVEDILOL 25 MG TABLET (FP) PO SCH ×2 (11:12→21:50)
[2021-06-14] MEDS: FINASTERIDE 5 MG TABLET (FP) PO SCH (11:12)
[2021-06-14] MEDS: amLODIPine BESYLATE 5 MG TABLET (FP) PO SCH (11:12)
[2021-06-14] MEDS: TAMSULOSIN HCL 0.4 MG CAP PO SCH (11:12)
[2021-06-14] MEDS ORDERED: PT OWN MED DRAWER 7, Y5N ONE ×3 (11:18→17:59)
[2021-06-14] MEDS: BETHANECHOL CHLORIDE 25 MG TABLET PO SCH ×4 (11:19→21:50)
[2021-06-14] MEDS ORDERED: DEXTROSE 5%-WATER 100 ML IVPB ONE (12:05)
[2021-06-14] MEDS: CEFTRIAXONE 2 GM in DEXTROSE 5%-WATER 2 GM/100 ML BAG IVPB SCH (12:23)
[2021-06-15 08:10] LABS: BASO % 0.5 % (0-2.0); EOS % 3.1 % (0-4.5); HEMATOCRIT 28.1 % (35.4-49); HEMOGLOBIN 10.1 GM/dL (11.7-16.9); LYMPH % 21.3 % (8-40); MCH 30.9 pg (25.7-33.7); MCHC 35.9 g/dl (32.0-35.9); MEAN CELL VOLUME 86.2 fl (80-96); MEAN PLT VOLUME 8.4 fl (7.5-11.1); MONO % 11.2 % (3.8-10.2); NEUT % 63.9 % (42.8-82.8); PLATELET COUNT 188 10^3/uL (134-434); RBC 3.26 M/mm3 (4.00-5.60); RDW 13.1 % (11.9-15.9); WHITE BLOOD COUNT 7.7 K/mm3 (4.0-10.0)
[2021-06-15 08:39] LABS: BLOOD UREA NITROGEN 13.5 mg/dL (7-18); CALCIUM 8.2 mg/dL (8.5-10.1)
[2021-06-15 08:43] LABS: CREATININE 0.7 mg/dL (0.55-1.3)
[2021-06-15] MEDS ORDERED: DEXTROSE 5%-WATER 100 ML IVPB ONE (08:48)
[2021-06-15] MEDS ORDERED: CEFTRIAXONE 2 GM in DEXTROSE 5%-WATER 2 GM/100 ML BAG IVPB SCH (10:00)
[2021-06-15] MEDS: TAMSULOSIN HCL 0.4 MG CAP PO SCH (10:26)
[2021-06-15] MEDS: FINASTERIDE 5 MG TABLET (FP) PO SCH (10:27)
[2021-06-15] MEDS: PANTOPRAZOLE 40 MG TABLET PO SCH (10:27)
[2021-06-15] MEDS: CARVEDILOL 25 MG TABLET (FP) PO SCH ×2 (10:27→21:27)
[2021-06-15] MEDS: amLODIPine BESYLATE 5 MG TABLET (FP) PO SCH (10:27)
[2021-06-15] MEDS: ENOXAPARIN NA (PORCINE) 40 MG/0.4 ML DISP.SYRIN SQ SCH (10:28)
[2021-06-15] MEDS: CEFTRIAXONE 2 GM in DEXTROSE 5%-WATER 2 GM/100 ML BAG IVPB SCH (10:31)
[2021-06-15] MEDS ORDERED: PT OWN MED DRAWER 7, Y5N ONE ×2 (12:57→18:59)
[2021-06-15] MEDS: BETHANECHOL CHLORIDE 25 MG TABLET PO SCH ×4 (12:58→21:26)
[2021-06-15] MEDS ORDERED: PIPERACILLIN/TAZOBACTAM 3.375 GM VIAL IVPB ONE (17:21)
[2021-06-15] MEDS ORDERED: DEXTROSE 5%-WATER - 50 ML IVPB ONE (17:21)
[2021-06-15] MEDS: PIPERACILLIN/TAZOB 3.375 GM 3.375 GM in DEXTROSE 5%-WATER - 50 ML IVPB SCH ×2 (17:49→19:27)
[2021-06-16] MEDS ORDERED: DEXTROSE 5%-WATER - 50 ML IVPB ONE ×2 (02:25→08:40)
[2021-06-16] MEDS ORDERED: PIPERACILLIN/TAZOBACTAM 3.375 GM VIAL IVPB ONE ×2 (02:25→08:40)
[2021-06-16] MEDS: PIPERACILLIN/TAZOB 3.375 GM 3.375 GM in DEXTROSE 5%-WATER - 50 ML IVPB SCH ×2 (02:27→09:33)
[2021-06-16] MEDS ORDERED: PT OWN MED DRAWER 7, Y5N ONE (08:41)
[2021-06-16 08:44] LABS: BASO % 0.9 % (0-2.0); EOS % 3.9 % (0-4.5); HEMATOCRIT 30.6 % (35.4-49); HEMOGLOBIN 10.6 GM/dL (11.7-16.9); LYMPH % 27.2 % (8-40); MCHC 34.8 g/dl (32.0-35.9); MEAN CELL VOLUME 86.4 fl (80-96); MEAN PLT VOLUME 8.5 fl (7.5-11.1); MONO % 11.4 % (3.8-10.2); NEUT % 56.6 % (42.8-82.8); PLATELET COUNT 197 10^3/uL (134-434); RBC 3.54 M/mm3 (4.00-5.60); RDW 12.9 % (11.9-15.9); WHITE BLOOD COUNT 6.2 K/mm3 (4.0-10.0)
[2021-06-16 09:22] LABS: BLOOD UREA NITROGEN 11.4 mg/dL (7-18); CALCIUM 8.3 mg/dL (8.5-10.1)
[2021-06-16 09:26] LABS: CREATININE 0.8 mg/dL (0.55-1.3)
[2021-06-16] MEDS: BETHANECHOL CHLORIDE 25 MG TABLET PO SCH ×4 (09:32→21:23)
[2021-06-16] MEDS: FINASTERIDE 5 MG TABLET (FP) PO SCH (09:32)
[2021-06-16] MEDS: amLODIPine BESYLATE 5 MG TABLET (FP) PO SCH (09:32)
[2021-06-16] MEDS: TAMSULOSIN HCL 0.4 MG CAP PO SCH (09:32)
[2021-06-16] MEDS: PANTOPRAZOLE 40 MG TABLET PO SCH (09:33)
[2021-06-16] MEDS: CARVEDILOL 25 MG TABLET (FP) PO SCH ×2 (09:33→21:23)
[2021-06-16] MEDS: ENOXAPARIN NA (PORCINE) 40 MG/0.4 ML DISP.SYRIN SQ SCH (09:33)
[2021-06-16] MEDS ORDERED: SODIUM PHOSPHATE/NA BIPHOS 133 ML ENEMA RC ONE (14:45)
[2021-06-17] MEDS ORDERED: PT OWN MED DRAWER 7, Y5N ONE (09:11)
[2021-06-17] MEDS: TAMSULOSIN HCL 0.4 MG CAP PO SCH (09:30)
[2021-06-17] MEDS: CARVEDILOL 25 MG TABLET (FP) PO SCH (09:31)
[2021-06-17] MEDS: amLODIPine BESYLATE 5 MG TABLET (FP) PO SCH (09:31)
[2021-06-17] MEDS: FINASTERIDE 5 MG TABLET (FP) PO SCH (09:32)
[2021-06-17] MEDS: BETHANECHOL CHLORIDE 25 MG TABLET PO SCH ×2 (09:32→14:40)
[2021-06-17 14:40] VITALS: BP 118/68; PULSE 68; TEMP 98.2
== END 2021-06-17 16:56 ==
LOC: JER 03:40 → JERBED 06:59 → J4W 21:08
PROVIDERS: ADMIT Family Medicine; ATTEND Family Medicine
PROC: 3E03329 Introduction of Other Anti-infective into Peripheral Vein, Percutaneous Approach (ICD-10-PCS; principal; 2021-06-13)
PROC: 3E023GC Introduction of Other Therapeutic Substance into Muscle, Percutaneous Approach (ICD-10-PCS; 2021-06-13)
PROC: 3E033NZ Introduction of Analgesics, Hypnotics, Sedatives into Peripheral Vein, Percutaneous Approach (ICD-10-PCS; 2021-06-13)
DX: R33.9 Retention of urine, unspecified (principal); I10 Essential (primary) hypertension; E78.5 Hyperlipidemia, unspecified; R01.1 Cardiac murmur, unspecified; R00.1 Bradycardia, unspecified; M54.5 Low back pain; G89.29 Other chronic pain; J61 Pneumoconiosis due to asbestos and other mineral fibers; I35.0 Nonrheumatic aortic (valve) stenosis; E87.1 Hypo-osmolality and hyponatremia; Z88.8 Allergy status to other drugs, medicaments and biological substances; Z85.46 Personal history of malignant neoplasm of prostate; Z98.890 Other specified postprocedural states; Z87.891 Personal history of nicotine dependence
CPT/HCPCS: 36415; 71045-TC-FY; 74177-TC; 80048; 80053; 81003; 82550; 84484; 85025; 85610; 85730; 87040; 87086; 87186; 93005; 93010; 96365; 96372; 96375; 99285-25; C9803; G0378; U0003; U0005